=== PATIENT | female | born 1990 | race African-American/Black ===

== ENCOUNTER 2021-07-25 11:22 | Emergency (ER) | payer MEDICAID, OTHER ==
[~2021-07-25] VITALS: Ht 170.2 cm; Wt 133.0 kg
[~2021-07-25 11:22] MED LIST: CARB200T; PHEN100C4
[2021-07-25] MEDS ORDERED: LEVETIRACETAM 1000MG PREMIX 100 ML IV ONE (11:45)
[2021-07-25 11:56] LABS: BASOPHILS % 0.5 % (0.0-2.0); EOSINOPHILS % 2.2 % (0.0-5.0); HEMATOCRIT. 38.3 % (36.0-48.0); HEMOGLOBIN. 13.3 g/dL (12.0-16.0); LYMPHOCYTES % 20.5 % (20.0-50.0); MEAN CORPUSCULAR VOLUME 89.2 fL (81.0-99.0); MONOCYTES % 8.8 % (2.0-8.0); PLATELET 305 x1000/uL (130-400); RED BLOOD CELL COUNT 4.29 mill/uL (4.2-5.4); RED CELL DISTRIBUTION WIDTH 12.9 % (11.6-14.6)
[2021-07-25 12:03] LABS: CHLORIDE 109 mEq/L (98-107)
[2021-07-25 12:07] LABS: ETHANOL BLOOD < 10 mg/dL
[2021-07-25] MEDS ORDERED: LEVE1000 MT (14:21)
[2021-07-25 17:10] VITALS: BP 139/62
== END 2021-07-25 17:14 | disposition home or self-care (01) ==
LOC: ER 11:22
DX: R56.9 Unspecified convulsions (principal)
CPT/HCPCS: 36415; 80053; 80320; 85025; 93005; 96365; 96366; 99285; J1953; G0480

== ENCOUNTER 2022-05-29 21:05 | Inpatient (IN) | payer MEDICAID ==
[~2022-05-29] VITALS: Ht 165.1 cm; Wt 131.5 kg
[~2022-05-29 21:05] MED LIST changes: +DIVA250T4 PO; +LEVE1000 MT; +LEVO100T PO; -PHEN100C4
[2022-05-29] MEDS ORDERED: LEVETIRACETAM 1000MG PREMIX 100 ML IV ONE (21:15)
[2022-05-29] MEDS ORDERED: NALOXONE HCL 0.4 MG/ML 1ML VIAL IV ONE (21:15)
[2022-05-29] MEDS ORDERED: ETOMIDATE 2MG/ML 10ML VIAL IV ONE ×2 (22:00→22:09)
[2022-05-29] MEDS ORDERED: SUCCINYLCHOLINE CHLORIDE 200MG/10ML IV ONE ×2 (22:00→22:09)
[2022-05-29] MEDS ORDERED: FENTANYL CITRATE 2,500 MCG in SODIUM CHLORIDE 0.9% 200 ML IV PRN (22:00)
[2022-05-29 22:10] LABS: HEMATOCRIT. 44.4 % (36.0-48.0); MEAN CORPUSCULAR HEMOGLOBIN 32.3 pg (28.0-32.0); MEAN PLATELET VOLUME 9.9 fl (7.4-10.4); PLATELET 368 x1000/uL (130-400); RED BLOOD CELL COUNT 4.35 mill/uL (4.2-5.4)
[2022-05-29] MEDS ORDERED: MIDAZOLAM HCL 100 MG in SODIUM CHLORIDE 0.9% 100 ML IV PRN (22:15)
[2022-05-29 22:20] LABS: CHLORIDE 105 mEq/L (98-107)
[2022-05-29 22:26] LABS: HCG SCREEN NEGATIVE
[2022-05-29 22:35] LABS: ETHANOL BLOOD < 10 mg/dL; T4 FREE 0.48 ng/dL (0.76-1.46)
[2022-05-29 22:40] LABS: PLATELET ESTIMATE NORMAL
[2022-05-29] MEDS ORDERED: CEFEPIME 2,000 MG in DEXT 5% WATER 100 ML IV STA (23:35)
[2022-05-29 23:38] LABS: BG BASE EXCESS -1.3 mmol/L (-2.0-2.0); BG CARBOXYHEMOGLOBIN 2.2 % (0.5-1.5); BG DEOXYHEMOGLOBIN 12.5 % (0.0-5.0); BG FRACTION INSPIRED OXYGEN 100; BG HCO3 ACT 27.6 mmol/L (22.0-26.0); BG METHEMOGLOBIN 0.3 % (0.0-1.5); BG OXYGEN SATURATION 87.2 % (92.0-98.5); BG PCO2 64.2 mmHg (35.0-45.0); BG PH 7.251 (7.350-7.450); BG SAMPLE SITE RIGHT RADIAL; BG TOTAL HEMOGLOBIN 15.4 g/dL (12.0-18.0); BG TOTAL RESPIRATORY RATE 23 b/min; BG VENT MODE VENT - AC
[2022-05-29] MEDS ORDERED: LEVOTHYROXINE SODIUM 100 MCG/ VIAL IV NR (23:45)
[2022-05-29] MEDS ORDERED: SODIUM CHLORIDE 0.9% 1,000 ML IV ONE (23:45)
[2022-05-29] MEDS ORDERED: VANCOMYCIN 1G PREMIX 200 ML IV SCH (23:45)
[2022-05-30] VITALS (34 sets, daily range): BP systolic 87–119; BP diastolic 46–91
[2022-05-30] MEDS ORDERED: LACTULOSE 20G/30ML UDC NG ONE
[2022-05-30] MEDS ORDERED: METHYLPREDNISOLONE SOD SUCC 125 MG/2 ML VIAL IV ONE
[2022-05-30] MEDS ORDERED: IPRATROPIUM/ALBUTEROL 0.5-3(2.5)MG/3ML NEB HHN ONE
[2022-05-30 01:19] LABS: CLARITY URINE CLOUDY (CLEAR); COLOR URINE DARK YELLOW (YELLOW); KETONES URINE NEGATIVE (NEGATIVE); LEUKOCYTE ESTERASE URINE NEGATIVE (NEGATIVE); NITRITE URINE NEGATIVE (NEGATIVE); OCCULT BLOOD URINE NEGATIVE (NEGATIVE); PROTEIN URINE 2+ (NEGATIVE); SPECIFIC GRAVITY URINE 1.027 (1.005-1.030); UROBILINOGEN URINE 0.2 E.U./dL (0.2-1.0)
[2022-05-30 01:50] LABS: *AMPHETAMINES SCREEN URINE NEGATIVE (NEGATIVE); *BARBITURATES SCREEN URINE NEGATIVE (NEGATIVE); *COCAINE SCREEN URINE NEGATIVE (NEGATIVE); METHADONE URINE SCREEN NEGATIVE (NEGATIVE); OPIATES URINE SCREEN NEGATIVE (NEGATIVE); PHENCYCLIDINE URINE SCREEN NEGATIVE (NEGATIVE)
[2022-05-30 02:22] LABS: *BENZODIAZEPINES SCREEN URINE PRESUMTIVE POSITIVE (NEGATIVE); CANNABINOID URINE SCREEN PRESUMTIVE POSITIVE (NEGATIVE)
[2022-05-30] MEDS ORDERED: NON FORMULARY PATIENT HOME MED XX SCH (09:30)
[2022-05-30] MEDS ORDERED: LEVOTHYROXINE SODIUM 100 MCG/ VIAL IV ONE (09:30)
[2022-05-30] MEDS ORDERED: DIVALPROEX SODIUM 250MG DR TABLET PO SCH (09:30)
[2022-05-30] MEDS ORDERED: ONDANSETRON HCL 4MG/2ML INJ IV PRN (09:30)
[2022-05-30] MEDS ORDERED: HYDROCODONE/ACETAMINOPHEN 5/325MG TABLET PO PRN (09:30)
[2022-05-30] MEDS ORDERED: IPRATROPIUM/ALBUTEROL 0.5-3(2.5)MG/3ML NEB HHN PRN (09:30)
[2022-05-30] MEDS ORDERED: ACETAMINOPHEN 325MG TABLET PO PRN (09:30)
[2022-05-30] MEDS: SODIUM CHLORIDE 0.45% 1,000 ML IV SCH ×2 (09:30→21:32)
[2022-05-30] MEDS ORDERED: CLONIDINE 0.1MG TABLET PO PRN (09:30)
[2022-05-30] MEDS ORDERED: LEVETIRACETAM 1,000 MG in SODIUM CHLORIDE 0.9% 100 ML IV SCH (09:30)
[2022-05-30] MEDS ORDERED: NALOXONE HCL 0.4MG/ML VIAL IV PRN (09:45)
[2022-05-30] MEDS ORDERED: LEVETIRACETAM 1000MG PREMIX 100 ML IV SCH (10:00)
[2022-05-30 10:16] LABS: HEMOGLOBIN. 12.6 g/dL (12.0-16.0); MEAN CORPUSCULAR HEMOGLOBIN 32.9 pg (28.0-32.0); MEAN CORPUSCULAR VOLUME 99.3 fL (81.0-99.0); MEAN PLATELET VOLUME 9.7 fl (7.4-10.4); PLATELET 241 x1000/uL (130-400); RED BLOOD CELL COUNT 3.82 mill/uL (4.2-5.4); RED CELL DISTRIBUTION WIDTH 14.3 % (11.6-14.6)
[2022-05-30 10:23] LABS: CREATINE KINASE 410 IU/L (26-192)
[2022-05-30] MEDS: PANTOPRAZOLE SODIUM 40 MG/VIAL IV SCH ×2 (10:35→21:31)
[2022-05-30] MEDS ORDERED: CEFEPIME 2,000 MG in DEXT 5% WATER 100 ML IV SCH (11:00)
[2022-05-30] MEDS ORDERED: MIDAZOLAM 100MG/100ML PMX 100 ML IV PRN (11:15)
[2022-05-30] MEDS: CEFEPIME 2,000 MG in DEXT 5% WATER 100 ML IV SCH (12:38)
[2022-05-30] MEDS: LEVETIRACETAM 1000MG PREMIX 100 ML IV SCH ×2 (12:38→21:32)
[2022-05-30] MEDS: MIDAZOLAM HCL 100 MG in SODIUM CHLORIDE 0.9% 100 ML IV PRN (12:39)
[2022-05-30 13:15] LABS: PLATELET ESTIMATE NORMAL
[2022-05-30] MEDS ORDERED: CARB200T6 PO (14:35)
[2022-05-30] MEDS ORDERED: KEPP500 PO (14:35)
[2022-05-30] MEDS ORDERED: PHEN100C4 MT ×2 (14:38)
[2022-05-30] MEDS ORDERED: LEVO50TA8 MT (14:38)
[2022-05-30] MEDS ORDERED: PHEN100C4 PO (14:38)
[2022-05-30] MEDS: FENTANYL CITRATE 2,500 MCG in SODIUM CHLORIDE 0.9% 200 ML IV PRN (14:40)
[2022-05-30] MEDS ORDERED: PHENYTOIN 100 MG/4 ML UDC GT SCH (17:00)
[2022-05-30 17:48] LABS: BG CARBOXYHEMOGLOBIN 0.3 % (0.5-1.5); BG DEOXYHEMOGLOBIN 3.1 % (0.0-5.0); BG FRACTION INSPIRED OXYGEN 100; BG HCO3 ACT 26.2 mmol/L (22.0-26.0); BG METHEMOGLOBIN 0.3 % (0.0-1.5); BG OXYGEN SATURATION 96.9 % (92.0-98.5); BG OXYHEMOGLOBIN 96.3 % (94.0-97.0); BG PCO2 39.4 mmHg (35.0-45.0); BG PO2 88.7 mmHg (75.0-100.0); BG SAMPLE SITE RIGHT RADIAL; BG TOTAL HEMOGLOBIN 12.1 g/dL (12.0-18.0); BG VENT MODE VENT - AC
[2022-05-30] MEDS: PHENYTOIN SODIUM 100MG/2ML VIAL IV SCH (18:02)
[2022-05-30 18:51] LABS: HEMATOCRIT 35.5 % (36.0-48.0); HEMOGLOBIN 11.7 g/dL (12.0-16.0)
[2022-05-30 21:18] LABS: TOTAL IRON BINDING CAPACITY 283 ug/dL (250-450)
[2022-05-30] MEDS: CARBAMAZEPINE 200MG TABLET PO SCH (21:31)
[2022-05-30 21:43] LABS: FOLIC ACID (FOLATE) SERUM 5.1 ng/mL (>5.38)
[2022-05-31] VITALS (96 sets, daily range): BP systolic 34–137; BP diastolic 18–106
[2022-05-31] MEDS: MIDAZOLAM HCL 100 MG in SODIUM CHLORIDE 0.9% 100 ML IV PRN ×3 (00:02→21:40)
[2022-05-31] MEDS: FENTANYL CITRATE 2,500 MCG in SODIUM CHLORIDE 0.9% 200 ML IV PRN ×2 (00:04→09:26)
[2022-05-31] MEDS: CEFEPIME 2,000 MG in DEXT 5% WATER 100 ML IV SCH ×2 (00:05→12:17)
[2022-05-31 00:46] LABS: HEMATOCRIT 33.9 % (36.0-48.0); HEMOGLOBIN 11.2 g/dL (12.0-16.0)
[2022-05-31 05:25] LABS: BASOPHILS % 0.4 % (0.0-2.0); EOSINOPHILS % 0.7 % (0.0-5.0); HEMATOCRIT. 33.6 % (36.0-48.0); HEMOGLOBIN. 11.1 g/dL (12.0-16.0); LYMPHOCYTES % 11.1 % (20.0-50.0); MEAN CORPUSCULAR HEMOGLOBIN 32.9 pg (28.0-32.0); MEAN CORPUSCULAR VOLUME 99.7 fL (81.0-99.0); MEAN PLATELET VOLUME 9.9 fl (7.4-10.4); MONOCYTES % 6.2 % (2.0-8.0); NEUTROPHILS % 81.6 % (40.0-76.0); PLATELET 166 x1000/uL (130-400); RED BLOOD CELL COUNT 3.37 mill/uL (4.2-5.4); RED CELL DISTRIBUTION WIDTH 14.1 % (11.6-14.6)
[2022-05-31] MEDS: SODIUM CHLORIDE 0.45% 1,000 ML IV SCH ×2 (05:51→16:19)
[2022-05-31 06:04] LABS: CHLORIDE 108 mEq/L (98-107)
[2022-05-31 06:12] LABS: CREATINE KINASE 712 IU/L (26-192); HDL CHOLESTEROL 30 mg/dL (40-59); LDL CHOLESTEROL 99 mg/dL (5-100)
[2022-05-31] MEDS ORDERED: LEVOTHYROXINE SODIUM 100MCG TABLET GT SCH (07:50)
[2022-05-31] MEDS: IPRATROPIUM BROMIDE (0.02%) 0.5MG/2.5ML NEB HHN PRN (08:20)
[2022-05-31] MEDS: ALBUTEROL (0.083%) 2.5MG/3ML NEB HHN PRN (08:21)
[2022-05-31 09:07] LABS: BG BASE EXCESS 0.8 mmol/L (-2.0-2.0); BG CARBOXYHEMOGLOBIN 0.5 % (0.5-1.5); BG DEOXYHEMOGLOBIN 8.4 % (0.0-5.0); BG FRACTION INSPIRED OXYGEN 100; BG HCO3 ACT 27.9 mmol/L (22.0-26.0); BG METHEMOGLOBIN 0.2 % (0.0-1.5); BG OXYGEN SATURATION 91.5 % (92.0-98.5); BG OXYHEMOGLOBIN 90.9 % (94.0-97.0); BG PCO2 56.5 mmHg (35.0-45.0); BG PH 7.312 (7.350-7.450); BG PO2 67.8 mmHg (75.0-100.0); BG SAMPLE SITE RIGHT RADIAL; BG TOTAL HEMOGLOBIN 12.1 g/dL (12.0-18.0); BG VENT MODE VENT - AC
[2022-05-31] MEDS: PHENYTOIN 100 MG/4 ML UDC GT SCH (09:48)
[2022-05-31] MEDS: CARBAMAZEPINE 200MG TABLET PO SCH ×2 (09:48→21:39)
[2022-05-31] MEDS: PANTOPRAZOLE SODIUM 40 MG/VIAL IV SCH ×2 (09:48→21:39)
[2022-05-31] MEDS: LEVOTHYROXINE SODIUM 100 MCG/ VIAL IV SCH (09:48)
[2022-05-31] MEDS: LEVETIRACETAM 1000MG PREMIX 100 ML IV SCH ×2 (09:51→21:39)
[2022-05-31] MEDS: VANCOMYCIN 1G PREMIX 200 ML IV SCH ×2 (09:51→21:39)
[2022-05-31] MEDS ORDERED: PROPOFOL 10MG/ML 100ML 100 ML IV PRN (10:15)
[2022-05-31 12:13] LABS: HEMATOCRIT 33.3 % (36.0-48.0); HEMOGLOBIN 10.7 g/dL (12.0-16.0)
[2022-05-31] MEDS: PHENYLEPHRINE 100 MG in DEXT 5% WATER 240 ML IV PRN (13:28)
[2022-05-31] MEDS: LACTULOSE 20G/30ML UDC NG SCH (16:17)
[2022-05-31] MEDS: ASCORBIC ACID 500 MG TABLET NG SCH ×2 (16:17→17:38)
[2022-05-31] MEDS: FERROUS SULFATE 300MG/5ML UDC PO SCH ×2 (16:18→17:39)
[2022-05-31] MEDS: PHENYTOIN SODIUM 100MG/2ML VIAL IV SCH (17:39)
[2022-05-31] MEDS: PROPOFOL 10MG/ML 100ML 100 ML IV PRN (22:14)
[2022-06-01] VITALS (61 sets, daily range): BP systolic 90–114; BP diastolic 39–65
[2022-06-01] MEDS: DOXYCYCLINE 100 MG in DEXT 5% WATER 100 ML IV SCH ×3 (00:34→23:49)
[2022-06-01] MEDS: CEFEPIME 2,000 MG in DEXT 5% WATER 100 ML IV SCH ×3 (00:34→23:49)
[2022-06-01 05:43] LABS: BASOPHILS % 0.5 % (0.0-2.0); EOSINOPHILS % 1.1 % (0.0-5.0); HEMOGLOBIN. 9.9 g/dL (12.0-16.0); LYMPHOCYTES % 14.3 % (20.0-50.0); MEAN CORPUSCULAR HEMOGLOBIN 32.8 pg (28.0-32.0); MEAN CORPUSCULAR VOLUME 99.4 fL (81.0-99.0); MEAN PLATELET VOLUME 10.1 fl (7.4-10.4); MONOCYTES % 7.8 % (2.0-8.0); NEUTROPHILS % 76.3 % (40.0-76.0); PLATELET 165 x1000/uL (130-400); RED BLOOD CELL COUNT 3.02 mill/uL (4.2-5.4); RED CELL DISTRIBUTION WIDTH 14.2 % (11.6-14.6)
[2022-06-01 05:57] LABS: CHLORIDE 107 mEq/L (98-107); PHOSPHORUS 1.4 mg/dL (2.5-4.9)
[2022-06-01] MEDS: MIDAZOLAM HCL 100 MG in SODIUM CHLORIDE 0.9% 100 ML IV PRN ×2 (07:03→20:05)
[2022-06-01] MEDS: SODIUM CHLORIDE 0.45% 1,000 ML IV SCH ×2 (07:05→11:32)
[2022-06-01] MEDS: IPRATROPIUM BROMIDE (0.02%) 0.5MG/2.5ML NEB HHN PRN (08:25)
[2022-06-01] MEDS: ALBUTEROL (0.083%) 2.5MG/3ML NEB HHN PRN (08:25)
[2022-06-01] MEDS: FENTANYL CITRATE 2,500 MCG in SODIUM CHLORIDE 0.9% 200 ML IV PRN ×2 (08:30→17:43)
[2022-06-01] MEDS: VANCOMYCIN 1G PREMIX 200 ML IV SCH (09:00)
[2022-06-01] MEDS: LACTULOSE 20G/30ML UDC NG SCH (09:00)
[2022-06-01] MEDS: LEVOTHYROXINE SODIUM 100 MCG/ VIAL IV SCH (09:00)
[2022-06-01] MEDS: CARBAMAZEPINE 200MG TABLET PO SCH ×2 (09:00→20:20)
[2022-06-01] MEDS: PANTOPRAZOLE SODIUM 40 MG/VIAL IV SCH ×2 (09:00→20:19)
[2022-06-01] MEDS: FERROUS SULFATE 300MG/5ML UDC PO SCH ×2 (09:00→17:42)
[2022-06-01] MEDS: ASCORBIC ACID 500 MG TABLET NG SCH ×2 (09:00→17:42)
[2022-06-01] MEDS: PHENYTOIN 100 MG/4 ML UDC GT SCH (09:00)
[2022-06-01 09:03] LABS: BG CARBOXYHEMOGLOBIN 0.3 % (0.5-1.5); BG DEOXYHEMOGLOBIN 6.8 % (0.0-5.0); BG FRACTION INSPIRED OXYGEN 100; BG HCO3 ACT 24.6 mmol/L (22.0-26.0); BG METHEMOGLOBIN 0.3 % (0.0-1.5); BG OXYGEN SATURATION 93.2 % (92.0-98.5); BG OXYHEMOGLOBIN 92.6 % (94.0-97.0); BG PCO2 50.2 mmHg (35.0-45.0); BG PH 7.308 (7.350-7.450); BG PO2 73.2 mmHg (75.0-100.0); BG SAMPLE SITE RIGHT RADIAL; BG TOTAL HEMOGLOBIN 11.6 g/dL (12.0-18.0); BG VENT MODE VENT - APRV
[2022-06-01] MEDS ORDERED: POTASSIUM PHOS,M-BASIC-D-BASIC 15 MMOL in DEXT 5% WATER 245 ML IV NR (10:00)
[2022-06-01] MEDS: PHENYLEPHRINE 100 MG in DEXT 5% WATER 240 ML IV PRN (10:21)
[2022-06-01] MEDS: LEVETIRACETAM 1000MG PREMIX 100 ML IV SCH ×2 (11:17→20:20)
[2022-06-01] MEDS: DOCUSATE SODIUM SUGAR FREE 100MG/10ML UDC NG SCH ×2 (14:02→17:42)
[2022-06-01] MEDS: PROPOFOL 10MG/ML 100ML 100 ML IV PRN ×2 (15:34→22:04)
[2022-06-01] MEDS: PHENYTOIN SODIUM 100MG/2ML VIAL IV SCH (18:20)
[2022-06-01] MEDS ORDERED: IPRATROPIUM/ALBUTEROL 0.5-3(2.5)MG/3ML NEB HHN SCH (20:00)
[2022-06-01] MEDS ORDERED: FUROSEMIDE 40MG/4ML VIAL IVP NR (20:00)
[2022-06-02] VITALS (59 sets, daily range): BP systolic 90–127; BP diastolic 42–68
[2022-06-02] MEDS: ALBUTEROL (0.083%) 2.5MG/3ML NEB HHN SCH ×5 (00:54→20:25)
[2022-06-02] MEDS: IPRATROPIUM BROMIDE (0.02%) 0.5MG/2.5ML NEB HHN SCH ×5 (00:54→20:25)
[2022-06-02] MEDS: PHENYLEPHRINE 100 MG in DEXT 5% WATER 240 ML IV PRN (03:58)
[2022-06-02] MEDS: PROPOFOL 10MG/ML 100ML 100 ML IV PRN ×2 (04:59→11:44)
[2022-06-02] MEDS: MIDAZOLAM HCL 100 MG in SODIUM CHLORIDE 0.9% 100 ML IV PRN ×2 (05:00→14:54)
[2022-06-02] MEDS: FENTANYL CITRATE 2,500 MCG in SODIUM CHLORIDE 0.9% 200 ML IV PRN ×2 (05:00→14:50)
[2022-06-02 05:54] LABS: BASOPHILS % 0.4 % (0.0-2.0); EOSINOPHILS % 1.1 % (0.0-5.0); HEMATOCRIT. 32.7 % (36.0-48.0); HEMOGLOBIN. 10.8 g/dL (12.0-16.0); LYMPHOCYTES % 11.2 % (20.0-50.0); MEAN CORPUSCULAR VOLUME 100.4 fL (81.0-99.0); MEAN PLATELET VOLUME 10.8 fl (7.4-10.4); MONOCYTES % 11.4 % (2.0-8.0); NEUTROPHILS % 75.9 % (40.0-76.0); PLATELET 174 x1000/uL (130-400); RED BLOOD CELL COUNT 3.26 mill/uL (4.2-5.4); RED CELL DISTRIBUTION WIDTH 13.7 % (11.6-14.6)
[2022-06-02 05:58] LABS: CHLORIDE 102 mEq/L (98-107)
[2022-06-02 06:24] LABS: CREATINE KINASE 178 IU/L (26-192); PHOSPHORUS 2.2 mg/dL (2.5-4.9)
[2022-06-02] MEDS: LEVOTHYROXINE SODIUM 100 MCG/ VIAL IV SCH ×2 (07:50→09:46)
[2022-06-02 08:16] LABS: BG BASE EXCESS 0.9 mmol/L (-2.0-2.0); BG DEOXYHEMOGLOBIN 11.8 % (0.0-5.0); BG FRACTION INSPIRED OXYGEN 100; BG HCO3 ACT 26.7 mmol/L (22.0-26.0); BG METHEMOGLOBIN 0.1 % (0.0-1.5); BG OXYGEN SATURATION 88.2 % (92.0-98.5); BG OXYHEMOGLOBIN 88.1 % (94.0-97.0); BG PCO2 48.3 mmHg (35.0-45.0); BG PH 7.361 (7.350-7.450); BG PO2 55.9 mmHg (75.0-100.0); BG SAMPLE SITE LEFT BRACHIAL; BG TOTAL HEMOGLOBIN 11.2 g/dL (12.0-18.0); BG VENT MODE VENT - AC
[2022-06-02] MEDS ORDERED: MAGNESIUM 2 G PREMIX 50 ML IV NR (09:00)
[2022-06-02] MEDS: LEVETIRACETAM 1000MG PREMIX 100 ML IV SCH ×2 (09:20→21:43)
[2022-06-02] MEDS: SODIUM CHLORIDE 0.45% 1,000 ML IV SCH (09:24)
[2022-06-02] MEDS: PHENYTOIN 100 MG/4 ML UDC GT SCH (09:36)
[2022-06-02] MEDS: LACTULOSE 20G/30ML UDC NG SCH (09:45)
[2022-06-02] MEDS: ASCORBIC ACID 500 MG TABLET NG SCH ×2 (09:45→17:00)
[2022-06-02] MEDS: CARBAMAZEPINE 200MG TABLET PO SCH ×2 (09:45→21:43)
[2022-06-02] MEDS: FERROUS SULFATE 300MG/5ML UDC PO SCH ×2 (09:45→17:00)
[2022-06-02] MEDS: PANTOPRAZOLE SODIUM 40 MG/VIAL IV SCH ×2 (09:46→21:43)
[2022-06-02] MEDS: DOCUSATE SODIUM SUGAR FREE 100MG/10ML UDC NG SCH ×2 (09:46→17:00)
[2022-06-02] MEDS ORDERED: POTASSIUM CHLORIDE INJ 40 MEQ in DEXT 5% WATER 250 ML IV NR (10:00)
[2022-06-02] MEDS ORDERED: POTASSIUM PHOS,M-BASIC-D-BASIC 10 MMOL in DEXT 5% WATER 246.6667 ML IV NR (10:00)
[2022-06-02] MEDS: DOXYCYCLINE 100 MG in DEXT 5% WATER 100 ML IV SCH ×2 (11:43→23:39)
[2022-06-02] MEDS: CEFEPIME 2,000 MG in DEXT 5% WATER 100 ML IV SCH ×2 (12:00→23:39)
[2022-06-02] MEDS: METHYLPREDNISOLONE SOD SUCC 125 MG/2 ML VIAL IV SCH ×2 (14:49→21:43)
[2022-06-02] MEDS: PHENYTOIN SODIUM 100MG/2ML VIAL IV SCH (18:34)
[2022-06-02] MEDS: ACETAMINOPHEN 325MG TABLET PO PRN (20:01)
[2022-06-03] VITALS (77 sets, daily range): BP systolic 99–177; BP diastolic 45–125
[2022-06-03] MEDS: PROPOFOL 10MG/ML 100ML 100 ML IV PRN ×2 (00:14→10:48)
[2022-06-03] MEDS: IPRATROPIUM BROMIDE (0.02%) 0.5MG/2.5ML NEB HHN SCH ×5 (00:31→16:39)
[2022-06-03] MEDS: ALBUTEROL (0.083%) 2.5MG/3ML NEB HHN SCH ×6 (00:31→20:57)
[2022-06-03] MEDS: SODIUM CHLORIDE 0.45% 1,000 ML IV SCH (04:35)
[2022-06-03 05:22] LABS: CHLORIDE 102 mEq/L (98-107)
[2022-06-03 05:28] LABS: HEMATOCRIT. 32.5 % (36.0-48.0); HEMOGLOBIN. 10.6 g/dL (12.0-16.0); MEAN CORPUSCULAR HEMOGLOBIN 32.7 pg (28.0-32.0); MEAN CORPUSCULAR VOLUME 100.4 fL (81.0-99.0); MEAN PLATELET VOLUME 10.5 fl (7.4-10.4); PLATELET 181 x1000/uL (130-400); RED BLOOD CELL COUNT 3.24 mill/uL (4.2-5.4)
[2022-06-03 05:32] LABS: PHOSPHORUS 3.9 mg/dL (2.5-4.9)
[2022-06-03] MEDS: METHYLPREDNISOLONE SOD SUCC 125 MG/2 ML VIAL IV SCH ×3 (06:08→21:09)
[2022-06-03] MEDS: FERROUS SULFATE 300MG/5ML UDC PO SCH ×2 (08:22→17:37)
[2022-06-03] MEDS: LACTULOSE 20G/30ML UDC NG SCH (08:22)
[2022-06-03] MEDS: PANTOPRAZOLE SODIUM 40 MG/VIAL IV SCH ×2 (08:23→21:09)
[2022-06-03] MEDS: LEVETIRACETAM 1000MG PREMIX 100 ML IV SCH ×2 (08:23→21:10)
[2022-06-03] MEDS: ASCORBIC ACID 500 MG TABLET NG SCH ×2 (08:23→17:39)
[2022-06-03] MEDS: LEVOTHYROXINE SODIUM 100 MCG/ VIAL IV SCH (08:23)
[2022-06-03] MEDS: DOCUSATE SODIUM SUGAR FREE 100MG/10ML UDC NG SCH ×2 (08:25→17:36)
[2022-06-03] MEDS: CARBAMAZEPINE 200MG TABLET PO SCH ×2 (08:31→21:09)
[2022-06-03] MEDS: PHENYTOIN 100 MG/4 ML UDC GT SCH (08:31)
[2022-06-03 09:02] LABS: PLATELET ESTIMATE NORMAL
[2022-06-03] MEDS: PHENYLEPHRINE 100 MG in DEXT 5% WATER 240 ML IV PRN (09:12)
[2022-06-03] MEDS: MIDAZOLAM HCL 100 MG in SODIUM CHLORIDE 0.9% 100 ML IV PRN ×2 (09:14→23:44)
[2022-06-03 09:24] LABS: BG BASE EXCESS -5.1 mmol/L (-2.0-2.0); BG CARBOXYHEMOGLOBIN 0.7 % (0.5-1.5); BG DEOXYHEMOGLOBIN 6.5 % (0.0-5.0); BG HCO3 ACT 22.6 mmol/L (22.0-26.0); BG METHEMOGLOBIN 0.2 % (0.0-1.5); BG OXYGEN SATURATION 93.4 % (92.0-98.5); BG OXYHEMOGLOBIN 92.6 % (94.0-97.0); BG PCO2 53.9 mmHg (35.0-45.0); BG PO2 74.2 mmHg (75.0-100.0); BG SAMPLE SITE RIGHT RADIAL; BG TOTAL HEMOGLOBIN 11.8 g/dL (12.0-18.0); BG VENT MODE VENT - P/C
[2022-06-03] MEDS: DOXYCYCLINE 100 MG in DEXT 5% WATER 100 ML IV SCH ×2 (10:49→23:45)
[2022-06-03] MEDS: FENTANYL CITRATE 2,500 MCG in SODIUM CHLORIDE 0.9% 200 ML IV PRN ×2 (12:13→23:45)
[2022-06-03] MEDS: CEFEPIME 2,000 MG in DEXT 5% WATER 100 ML IV SCH (12:14)
[2022-06-03] MEDS: PHENYTOIN SODIUM 100MG/2ML VIAL IV SCH (17:38)
[2022-06-03] MEDS ORDERED: VANCOMYCIN 1G PREMIX 200 ML IV SCH (18:00)
[2022-06-03] MEDS ORDERED: PROPOFOL 10MG/ML 100ML 100 ML IV PRN (20:01)
[2022-06-04] VITALS (92 sets, daily range): BP systolic 54–155; BP diastolic 40–97
[2022-06-04] MEDS: ACETYLCYSTEINE 200MG/ML 20% VIAL 4ML INH SCH ×2 (00:31→08:27)
[2022-06-04] MEDS: ALBUTEROL (0.083%) 2.5MG/3ML NEB HHN SCH ×5 (00:32→20:14)
[2022-06-04] MEDS: SODIUM CHLORIDE 0.45% 1,000 ML IV SCH (01:16)
[2022-06-04] MEDS: CEFEPIME 2,000 MG in DEXT 5% WATER 100 ML IV SCH ×2 (01:16→13:21)
[2022-06-04] MEDS: PHENYLEPHRINE 100 MG in DEXT 5% WATER 240 ML IV PRN (03:37)
[2022-06-04] MEDS: IPRATROPIUM BROMIDE (0.02%) 0.5MG/2.5ML NEB HHN SCH (03:59)
[2022-06-04] MEDS: METHYLPREDNISOLONE SOD SUCC 125 MG/2 ML VIAL IV SCH ×3 (05:33→22:40)
[2022-06-04 07:13] LABS: CHLORIDE 106 mEq/L (98-107)
[2022-06-04 07:15] LABS: HEMATOCRIT. 28.7 % (36.0-48.0); HEMOGLOBIN. 9.4 g/dL (12.0-16.0); MEAN CORPUSCULAR HEMOGLOBIN 32.3 pg (28.0-32.0); MEAN CORPUSCULAR VOLUME 98.4 fL (81.0-99.0); MEAN PLATELET VOLUME 10.4 fl (7.4-10.4); PLATELET 211 x1000/uL (130-400); RED BLOOD CELL COUNT 2.92 mill/uL (4.2-5.4); RED CELL DISTRIBUTION WIDTH 13.7 % (11.6-14.6)
[2022-06-04] MEDS ORDERED: ATROPINE SULFATE 1MG/ML VIAL IV SCH (07:45)
[2022-06-04] MEDS: NOREPINEPHRINE 32 MG in DEXT 5% WATER 218 ML IV PRN (07:55)
[2022-06-04] MEDS ORDERED: ATROPINE SULFATE 1MG/10ML SYR IV SCH (08:00)
[2022-06-04] MEDS: PANTOPRAZOLE SODIUM 40 MG/VIAL IV SCH ×2 (09:39→22:40)
[2022-06-04] MEDS: LEVETIRACETAM 1000MG PREMIX 100 ML IV SCH ×2 (09:39→22:41)
[2022-06-04] MEDS: LEVOTHYROXINE SODIUM 100 MCG/ VIAL IV SCH (09:39)
[2022-06-04] MEDS: LACTULOSE 20G/30ML UDC NG SCH (09:40)
[2022-06-04] MEDS: CARBAMAZEPINE 200MG TABLET PO SCH ×2 (09:40→22:41)
[2022-06-04] MEDS: PHENYTOIN 100 MG/4 ML UDC GT SCH (09:40)
[2022-06-04] MEDS: ASCORBIC ACID 500 MG TABLET NG SCH ×2 (09:40→17:45)
[2022-06-04] MEDS: FERROUS SULFATE 300MG/5ML UDC PO SCH ×2 (09:42→17:45)
[2022-06-04] MEDS: MIDAZOLAM HCL 100 MG in SODIUM CHLORIDE 0.9% 100 ML IV PRN (09:48)
[2022-06-04 10:16] LABS: BG BASE EXCESS -2.9 mmol/L (-2.0-2.0); BG CARBOXYHEMOGLOBIN 0.3 % (0.5-1.5); BG DEOXYHEMOGLOBIN 15.7 % (0.0-5.0); BG FRACTION INSPIRED OXYGEN 100; BG HCO3 ACT 23.6 mmol/L (22.0-26.0); BG METHEMOGLOBIN 0.1 % (0.0-1.5); BG OXYGEN SATURATION 84.2 % (92.0-98.5); BG OXYHEMOGLOBIN 83.9 % (94.0-97.0); BG PH 7.301 (7.350-7.450); BG PO2 50.1 mmHg (75.0-100.0); BG SAMPLE SITE RIGHT RADIAL; BG TOTAL HEMOGLOBIN 10.7 g/dL (12.0-18.0); BG VENT MODE VENT - P/C
[2022-06-04] MEDS: DOCUSATE SODIUM SUGAR FREE 100MG/10ML UDC NG SCH ×2 (10:17→17:45)
[2022-06-04] MEDS: FENTANYL CITRATE/PF 2,500 MCG in SODIUM CHLORIDE 0.9% 200 ML IV PRN ×2 (10:48→19:03)
[2022-06-04] MEDS: VANCOMYCIN 1250MG in DEXTROSE 5% WATER 250ML IV SCH ×2 (10:50→22:41)
[2022-06-04 13:19] LABS: PLATELET ESTIMATE NORMAL
[2022-06-04] MEDS: METOCLOPRAMIDE HCL 10MG/2ML VIAL IV SCH ×2 (13:20→17:43)
[2022-06-04] MEDS: DOXYCYCLINE 100 MG in DEXT 5% WATER 100 ML IV SCH (13:23)
[2022-06-04] MEDS ORDERED: DOPAMINE 400MG/250ML PREMIX 250 ML IV PRN (14:15)
[2022-06-04] MEDS: PHENYTOIN SODIUM 100MG/2ML VIAL IV SCH (17:45)
[2022-06-04] MEDS: MIDAZOLAM HCL 100 MG in SODIUM CHLORIDE 0.9% 80 ML IV PRN (19:02)
[2022-06-05] VITALS (86 sets, daily range): BP systolic 96–152; BP diastolic 42–90
[2022-06-05] MEDS: ALBUTEROL (0.083%) 2.5MG/3ML NEB HHN SCH ×6 (00:24→20:19)
[2022-06-05] MEDS: ACETYLCYSTEINE 200MG/ML 20% VIAL 4ML INH SCH ×3 (00:25→15:38)
[2022-06-05] MEDS: METOCLOPRAMIDE HCL 10MG/2ML VIAL IV SCH ×4 (00:51→18:02)
[2022-06-05] MEDS: DOXYCYCLINE 100 MG in DEXT 5% WATER 100 ML IV SCH ×2 (00:51→12:00)
[2022-06-05] MEDS: CEFEPIME 2,000 MG in DEXT 5% WATER 100 ML IV SCH ×2 (00:51→12:04)
[2022-06-05] MEDS: SODIUM CHLORIDE 0.45% 1,000 ML IV SCH ×2 (00:52→18:03)
[2022-06-05] MEDS: FENTANYL CITRATE/PF 2,500 MCG in SODIUM CHLORIDE 0.9% 200 ML IV PRN ×2 (03:02→13:49)
[2022-06-05] MEDS: MIDAZOLAM HCL 100 MG in SODIUM CHLORIDE 0.9% 80 ML IV PRN ×4 (03:04→19:47)
[2022-06-05 05:38] LABS: HEMOGLOBIN. 10.2 g/dL (12.0-16.0); MEAN CORPUSCULAR HEMOGLOBIN 32.5 pg (28.0-32.0); MEAN CORPUSCULAR VOLUME 99.1 fL (81.0-99.0); MEAN PLATELET VOLUME 9.9 fl (7.4-10.4); PLATELET 234 x1000/uL (130-400); RED BLOOD CELL COUNT 3.13 mill/uL (4.2-5.4); RED CELL DISTRIBUTION WIDTH 13.9 % (11.6-14.6)
[2022-06-05 05:53] LABS: CHLORIDE 109 mEq/L (98-107)
[2022-06-05 06:01] LABS: PHOSPHORUS 2.1 mg/dL (2.5-4.9)
[2022-06-05] MEDS: METHYLPREDNISOLONE SOD SUCC 125 MG/2 ML VIAL IV SCH ×3 (06:05→21:09)
[2022-06-05] MEDS: LEVOTHYROXINE SODIUM 100 MCG/ VIAL IV SCH (09:00)
[2022-06-05] MEDS: FOLIC ACID 1MG TABLET PO SCH (09:00)
[2022-06-05] MEDS: ASCORBIC ACID 500 MG TABLET NG SCH ×2 (09:00→18:03)
[2022-06-05] MEDS: CARBAMAZEPINE 200MG TABLET PO SCH ×2 (09:00→21:09)
[2022-06-05] MEDS: PHENYTOIN 100 MG/4 ML UDC GT SCH (09:01)
[2022-06-05] MEDS: FERROUS SULFATE 300MG/5ML UDC PO SCH ×2 (09:01→18:02)
[2022-06-05] MEDS: LACTULOSE 20G/30ML UDC NG SCH (09:01)
[2022-06-05] MEDS: DOCUSATE SODIUM SUGAR FREE 100MG/10ML UDC NG SCH ×2 (09:01→18:02)
[2022-06-05] MEDS: PANTOPRAZOLE SODIUM 40 MG/VIAL IV SCH ×2 (09:01→21:08)
[2022-06-05] MEDS: LEVETIRACETAM 1,000 MG in SODIUM CHLORIDE 0.9% 100 ML IV SCH ×2 (09:02→21:08)
[2022-06-05] MEDS: VANCOMYCIN 1250MG in DEXTROSE 5% WATER 250ML IV SCH ×2 (09:03→21:08)
[2022-06-05 09:21] LABS: ATYPICAL LYMPHOCYTES 1; PLATELET ESTIMATE NORMAL
[2022-06-05 10:22] LABS: BG CARBOXYHEMOGLOBIN 0.3 % (0.5-1.5); BG FRACTION INSPIRED OXYGEN 100; BG HCO3 ACT 26.2 mmol/L (22.0-26.0); BG METHEMOGLOBIN 0.3 % (0.0-1.5); BG OXYGEN SATURATION 89.9 % (92.0-98.5); BG OXYHEMOGLOBIN 89.4 % (94.0-97.0); BG PCO2 49.8 mmHg (35.0-45.0); BG PH 7.339 (7.350-7.450); BG PO2 59.8 mmHg (75.0-100.0); BG SAMPLE SITE RIGHT RADIAL; BG TOTAL HEMOGLOBIN 11.2 g/dL (12.0-18.0); BG VENT MODE VENT - P/C
[2022-06-05] MEDS ORDERED: HALOPERIDOL LACTATE 5MG/ML VIAL IM PRN (13:30)
[2022-06-05] MEDS: PHENYTOIN 100 MG/4 ML UDC NG SCH (21:09)
[2022-06-05] MEDS: FENTANYL 2500MCG/250ML PMX 250 ML IV PRN (21:10)
[2022-06-06] VITALS (94 sets, daily range): BP systolic 76–152; BP diastolic 31–121
[2022-06-06] MEDS: CEFEPIME 2,000 MG in DEXT 5% WATER 100 ML IV SCH ×3 (00:04→23:54)
[2022-06-06] MEDS: DOXYCYCLINE 100 MG in DEXT 5% WATER 100 ML IV SCH ×3 (00:04→23:53)
[2022-06-06] MEDS: METOCLOPRAMIDE HCL 10MG/2ML VIAL IV SCH ×5 (00:04→23:54)
[2022-06-06] MEDS: ACETYLCYSTEINE 200MG/ML 20% VIAL 4ML INH SCH ×3 (00:19→15:28)
[2022-06-06] MEDS: ALBUTEROL (0.083%) 2.5MG/3ML NEB HHN SCH ×6 (00:19→20:36)
[2022-06-06] MEDS: MIDAZOLAM HCL 100 MG in SODIUM CHLORIDE 0.9% 80 ML IV PRN ×4 (01:38→19:19)
[2022-06-06] MEDS: FENTANYL 2500MCG/250ML PMX 250 ML IV PRN ×3 (03:29→17:48)
[2022-06-06 05:41] LABS: CHLORIDE 112 mEq/L (98-107)
[2022-06-06 05:45] LABS: HEMATOCRIT. 26.6 % (36.0-48.0); HEMOGLOBIN. 8.8 g/dL (12.0-16.0); MEAN CORPUSCULAR HEMOGLOBIN 32.9 pg (28.0-32.0); MEAN CORPUSCULAR VOLUME 99.9 fL (81.0-99.0); MEAN PLATELET VOLUME 9.4 fl (7.4-10.4); PLATELET 180 x1000/uL (130-400); RED BLOOD CELL COUNT 2.66 mill/uL (4.2-5.4); RED CELL DISTRIBUTION WIDTH 14.1 % (11.6-14.6)
[2022-06-06] MEDS: METHYLPREDNISOLONE SOD SUCC 125 MG/2 ML VIAL IV SCH ×3 (06:11→21:17)
[2022-06-06] MEDS ORDERED: DIPHENHYDRAMINE 50MG/ML VIAL IV NR (06:45)
[2022-06-06] MEDS: LEVOTHYROXINE SODIUM 100 MCG/ VIAL IV SCH (09:33)
[2022-06-06] MEDS: FOLIC ACID 1MG TABLET PO SCH (09:33)
[2022-06-06] MEDS: ASCORBIC ACID 500 MG TABLET NG SCH ×2 (09:33→17:00)
[2022-06-06] MEDS: CARBAMAZEPINE 200MG TABLET PO SCH ×2 (09:33→21:00)
[2022-06-06] MEDS: PHENYTOIN 100 MG/4 ML UDC GT SCH (09:34)
[2022-06-06] MEDS: DOCUSATE SODIUM SUGAR FREE 100MG/10ML UDC NG SCH ×2 (09:34→17:00)
[2022-06-06] MEDS: FERROUS SULFATE 300MG/5ML UDC PO SCH ×2 (09:34→17:00)
[2022-06-06] MEDS: LACTULOSE 20G/30ML UDC NG SCH (09:34)
[2022-06-06] MEDS: LEVETIRACETAM 1,000 MG in SODIUM CHLORIDE 0.9% 100 ML IV SCH ×2 (09:35→21:16)
[2022-06-06] MEDS: VANCOMYCIN 1250MG in DEXTROSE 5% WATER 250ML IV SCH ×2 (09:35→21:17)
[2022-06-06 10:18] LABS: BG BASE EXCESS 2.6 mmol/L (-2.0-2.0); BG CARBOXYHEMOGLOBIN 0.1 % (0.5-1.5); BG DEOXYHEMOGLOBIN 5.1 % (0.0-5.0); BG FRACTION INSPIRED OXYGEN 100; BG METHEMOGLOBIN 0.2 % (0.0-1.5); BG OXYGEN SATURATION 94.9 % (92.0-98.5); BG OXYHEMOGLOBIN 94.6 % (94.0-97.0); BG PCO2 47.6 mmHg (35.0-45.0); BG PH 7.388 (7.350-7.450); BG PO2 78.2 mmHg (75.0-100.0); BG SAMPLE SITE LEFT RADIAL; BG TOTAL HEMOGLOBIN 9.3 g/dL (12.0-18.0); BG VENT MODE VENT - P/C
[2022-06-06 10:57] LABS: NUCLEATED RED BLOOD CELLS 1 /100 WBC; PLATELET ESTIMATE NORMAL
[2022-06-06] MEDS: PANTOPRAZOLE SODIUM 40 MG/VIAL IV SCH ×2 (11:56→21:17)
[2022-06-06] MEDS: SODIUM CHLORIDE 0.45% 1,000 ML IV SCH (11:59)
[2022-06-06 17:27] LABS: HEMATOCRIT 29.4 % (36.0-48.0); HEMOGLOBIN 9.5 g/dL (12.0-16.0); MEAN CORPUSCULAR HEMOGLOBIN 32.6 pg (28.0-32.0); MEAN CORPUSCULAR VOLUME 100.4 fL (81.0-99.0); PLATELET 209 x1000/uL (130-400); RED BLOOD CELL COUNT 2.93 mill/uL (4.2-5.4); RED CELL DISTRIBUTION WIDTH 13.9 % (11.6-14.6)
[2022-06-06] MEDS: PHENYTOIN 100 MG/4 ML UDC NG SCH (21:00)
[2022-06-07] VITALS (79 sets, daily range): BP systolic 105–161; BP diastolic 45–124
[2022-06-07] MEDS: ALBUTEROL (0.083%) 2.5MG/3ML NEB HHN SCH (00:04)
[2022-06-07] MEDS: ACETYLCYSTEINE 200MG/ML 20% VIAL 4ML INH SCH ×2 (00:04→12:10)
[2022-06-07] MEDS: FENTANYL 2500MCG/250ML PMX 250 ML IV PRN ×4 (00:50→20:29)
[2022-06-07] MEDS: MIDAZOLAM HCL 100 MG in SODIUM CHLORIDE 0.9% 80 ML IV PRN ×5 (00:50→20:54)
[2022-06-07] MEDS: METOCLOPRAMIDE HCL 10MG/2ML VIAL IV SCH ×3 (05:28→18:00)
[2022-06-07] MEDS: METHYLPREDNISOLONE SOD SUCC 125 MG/2 ML VIAL IV SCH ×3 (05:28→21:02)
[2022-06-07 07:24] LABS: BASOPHILS % 1.3 % (0.0-2.0); EOSINOPHILS % 0.7 % (0.0-5.0); HEMATOCRIT. 27.8 % (36.0-48.0); HEMOGLOBIN. 9.1 g/dL (12.0-16.0); LYMPHOCYTES % 15.4 % (20.0-50.0); MEAN CORPUSCULAR HEMOGLOBIN 33.3 pg (28.0-32.0); MEAN CORPUSCULAR VOLUME 101.7 fL (81.0-99.0); MEAN PLATELET VOLUME 9.7 fl (7.4-10.4); MONOCYTES % 7.6 % (2.0-8.0); PLATELET 197 x1000/uL (130-400); RED BLOOD CELL COUNT 2.74 mill/uL (4.2-5.4); RED CELL DISTRIBUTION WIDTH 14.2 % (11.6-14.6)
[2022-06-07] MEDS ORDERED: PROPOFOL 10MG/ML 100ML 100 ML IV PRN (08:00)
[2022-06-07] MEDS ORDERED: HALOPERIDOL LACTATE 5MG/ML VIAL IM ONE (08:15)
[2022-06-07] MEDS ORDERED: HALOPERIDOL LACTATE 5MG/ML VIAL IM PRN (08:30)
[2022-06-07 09:03] LABS: BG BASE EXCESS 5.1 mmol/L (-2.0-2.0); BG CARBOXYHEMOGLOBIN 0.1 % (0.5-1.5); BG DEOXYHEMOGLOBIN 3.2 % (0.0-5.0); BG FRACTION INSPIRED OXYGEN 100; BG HCO3 ACT 27.6 mmol/L (22.0-26.0); BG METHEMOGLOBIN 0.3 % (0.0-1.5); BG OXYGEN SATURATION 96.8 % (92.0-98.5); BG OXYHEMOGLOBIN 96.4 % (94.0-97.0); BG PCO2 32.5 mmHg (35.0-45.0); BG PH 7.547 (7.350-7.450); BG PO2 77.2 mmHg (75.0-100.0); BG SAMPLE SITE LEFT RADIAL; BG TOTAL HEMOGLOBIN 9.2 g/dL (12.0-18.0); BG TOTAL RESPIRATORY RATE 26 b/min; BG VENT MODE VENT - P/C
[2022-06-07] MEDS: FERROUS SULFATE 300MG/5ML UDC PO SCH ×2 (09:13→17:00)
[2022-06-07] MEDS: LEVETIRACETAM 1,000 MG in SODIUM CHLORIDE 0.9% 100 ML IV SCH ×2 (09:13→20:28)
[2022-06-07] MEDS: DOCUSATE SODIUM SUGAR FREE 100MG/10ML UDC NG SCH ×2 (09:14→17:44)
[2022-06-07] MEDS: CARBAMAZEPINE 200MG TABLET PO SCH ×2 (09:14→20:09)
[2022-06-07] MEDS: ASCORBIC ACID 500 MG TABLET NG SCH ×2 (09:14→17:00)
[2022-06-07] MEDS: LACTULOSE 20G/30ML UDC NG SCH (09:14)
[2022-06-07] MEDS: PHENYTOIN 100 MG/4 ML UDC GT SCH (09:14)
[2022-06-07] MEDS: FOLIC ACID 1MG TABLET PO SCH (09:14)
[2022-06-07] MEDS: PANTOPRAZOLE SODIUM 40 MG/VIAL IV SCH ×2 (09:15→20:08)
[2022-06-07] MEDS: SODIUM CHLORIDE 0.45% 1,000 ML IV SCH (09:15)
[2022-06-07] MEDS: LEVOTHYROXINE SODIUM 100 MCG/ VIAL IV SCH (09:17)
[2022-06-07] MEDS: VANCOMYCIN 1250MG in DEXTROSE 5% WATER 250ML IV SCH ×2 (09:23→20:09)
[2022-06-07 09:50] LABS: CHLORIDE 110 mEq/L (98-107); PHOSPHORUS 3.7 mg/dL (2.5-4.9)
[2022-06-07] MEDS: PROPOFOL 10MG/ML 100ML 100 ML IV PRN ×5 (10:52→23:53)
[2022-06-07] MEDS: ALBUTEROL (0.083%) 2.5MG/3ML NEB HHN PRN (12:10)
[2022-06-07] MEDS ORDERED: FUROSEMIDE 40MG/4ML VIAL IVP NR (12:45)
[2022-06-07] MEDS: CEFEPIME 2,000 MG in DEXT 5% WATER 100 ML IV SCH (13:13)
[2022-06-07] MEDS: DOXYCYCLINE 100 MG in DEXT 5% WATER 100 ML IV SCH ×2 (13:18→23:56)
[2022-06-07] MEDS: ACETAMINOPHEN 650MG/20.3ML UDC GT PRN (14:19)
[2022-06-07] MEDS: PHENYTOIN 100 MG/4 ML UDC NG SCH (20:20)
[2022-06-08] VITALS (58 sets, daily range): BP systolic 110–174; BP diastolic 48–103
[2022-06-08] MEDS: ACETYLCYSTEINE 200MG/ML 20% VIAL 4ML INH SCH ×4 (00:17→13:55)
[2022-06-08] MEDS: METOCLOPRAMIDE HCL 10MG/2ML VIAL IV SCH ×5 (00:55→23:37)
[2022-06-08] MEDS: CEFEPIME 2,000 MG in DEXT 5% WATER 100 ML IV SCH ×2 (00:55→13:05)
[2022-06-08] MEDS: MIDAZOLAM HCL 100 MG in SODIUM CHLORIDE 0.9% 80 ML IV PRN ×4 (01:46→21:16)
[2022-06-08] MEDS: ALBUTEROL (0.083%) 2.5MG/3ML NEB HHN PRN ×3 (02:41→13:55)
[2022-06-08] MEDS: FENTANYL 2500MCG/250ML PMX 250 ML IV PRN ×3 (03:36→17:37)
[2022-06-08] MEDS: PROPOFOL 10MG/ML 100ML 100 ML IV PRN ×2 (04:41→22:37)
[2022-06-08] MEDS: METHYLPREDNISOLONE SOD SUCC 125 MG/2 ML VIAL IV SCH ×3 (05:57→21:15)
[2022-06-08 06:32] LABS: HEMATOCRIT. 25.5 % (36.0-48.0); HEMOGLOBIN. 8.4 g/dL (12.0-16.0); MEAN CORPUSCULAR HEMOGLOBIN 33.7 pg (28.0-32.0); MEAN CORPUSCULAR VOLUME 102.4 fL (81.0-99.0); MEAN PLATELET VOLUME 9.7 fl (7.4-10.4); PLATELET 217 x1000/uL (130-400); RED BLOOD CELL COUNT 2.49 mill/uL (4.2-5.4); RED CELL DISTRIBUTION WIDTH 14.1 % (11.6-14.6)
[2022-06-08] MEDS: FOLIC ACID 1MG TABLET PO SCH (08:29)
[2022-06-08] MEDS: PHENYTOIN 100 MG/4 ML UDC GT SCH (08:29)
[2022-06-08] MEDS: FERROUS SULFATE 300MG/5ML UDC PO SCH ×2 (08:30→17:36)
[2022-06-08] MEDS: PANTOPRAZOLE SODIUM 40 MG/VIAL IV SCH ×2 (08:30→21:15)
[2022-06-08] MEDS: CARBAMAZEPINE 200MG TABLET PO SCH ×2 (08:30→21:14)
[2022-06-08] MEDS: DOCUSATE SODIUM SUGAR FREE 100MG/10ML UDC NG SCH ×2 (08:30→17:37)
[2022-06-08] MEDS: LACTULOSE 20G/30ML UDC NG SCH (08:30)
[2022-06-08] MEDS: LEVOTHYROXINE SODIUM 100 MCG/ VIAL IV SCH (08:31)
[2022-06-08] MEDS: ASCORBIC ACID 500 MG TABLET NG SCH ×2 (08:31→17:36)
[2022-06-08 08:55] LABS: BG BASE EXCESS 5.5 mmol/L (-2.0-2.0); BG CARBOXYHEMOGLOBIN 0.3 % (0.5-1.5); BG DEOXYHEMOGLOBIN 6.2 % (0.0-5.0); BG FRACTION INSPIRED OXYGEN 100; BG HCO3 ACT 31.5 mmol/L (22.0-26.0); BG METHEMOGLOBIN 0.3 % (0.0-1.5); BG OXYGEN SATURATION 93.8 % (92.0-98.5); BG OXYHEMOGLOBIN 93.2 % (94.0-97.0); BG PCO2 53.2 mmHg (35.0-45.0); BG PO2 66.9 mmHg (75.0-100.0); BG SAMPLE SITE RIGHT RADIAL; BG TOTAL HEMOGLOBIN 10.1 g/dL (12.0-18.0); BG VENT MODE VENT - P/C
[2022-06-08] MEDS: LEVETIRACETAM 1,000 MG in SODIUM CHLORIDE 0.9% 100 ML IV SCH ×2 (08:59→21:15)
[2022-06-08] MEDS: VANCOMYCIN 1250MG in DEXTROSE 5% WATER 250ML IV SCH ×2 (08:59→21:14)
[2022-06-08 09:15] LABS: CHLORIDE 109 mEq/L (98-107)
[2022-06-08 10:05] LABS: T4 FREE 0.77 ng/dL (0.76-1.46)
[2022-06-08 10:44] LABS: PLATELET ESTIMATE NORMAL
[2022-06-08] MEDS ORDERED: POLYMYXIN B SULFATE/TMP 10ML BOTTLE BOTHEYE SCH (12:00)
[2022-06-08] MEDS: DOXYCYCLINE 100 MG in DEXT 5% WATER 100 ML IV SCH ×2 (13:05→23:37)
[2022-06-08] MEDS ORDERED: LACTULOSE ENEMA 1,000ML BOTTLE PR NR (16:00)
[2022-06-08] MEDS ORDERED: METHYLPREDNISOLONE SOD SUCC 125 MG/2 ML VIAL IV SCH (21:00)
[2022-06-08] MEDS: PHENYTOIN 100 MG/4 ML UDC NG SCH (21:14)
[2022-06-08] MEDS: AMLODIPINE 5MG TABLET PO SCH (21:14)
[2022-06-09] VITALS (46 sets, daily range): BP systolic 118–156; BP diastolic 54–84
[2022-06-09] MEDS: FENTANYL 2500MCG/250ML PMX 250 ML IV PRN ×4 (00:14→22:07)
[2022-06-09] MEDS: ALBUTEROL (0.083%) 2.5MG/3ML NEB HHN PRN (00:30)
[2022-06-09] MEDS: MIDAZOLAM HCL 100 MG in SODIUM CHLORIDE 0.9% 80 ML IV PRN ×3 (04:04→18:18)
[2022-06-09] MEDS: METOCLOPRAMIDE HCL 10MG/2ML VIAL IV SCH ×3 (05:22→18:00)
[2022-06-09] MEDS: METHYLPREDNISOLONE SOD SUCC 125 MG/2 ML VIAL IV SCH ×3 (05:22→22:39)
[2022-06-09 05:41] LABS: HEMATOCRIT. 27.7 % (36.0-48.0); HEMOGLOBIN. 8.7 g/dL (12.0-16.0); MEAN CORPUSCULAR HEMOGLOBIN 32.1 pg (28.0-32.0); MEAN CORPUSCULAR VOLUME 102.4 fL (81.0-99.0); MEAN PLATELET VOLUME 9.8 fl (7.4-10.4); PLATELET 238 x1000/uL (130-400); RED CELL DISTRIBUTION WIDTH 14.2 % (11.6-14.6)
[2022-06-09 05:43] LABS: CHLORIDE 109 mEq/L (98-107)
[2022-06-09 05:53] LABS: PHOSPHORUS 3.7 mg/dL (2.5-4.9)
[2022-06-09] MEDS: LEVOTHYROXINE SODIUM 100 MCG/ VIAL IV SCH (07:50)
[2022-06-09] MEDS: FOLIC ACID 1MG TABLET PO SCH (08:45)
[2022-06-09] MEDS: ASCORBIC ACID 500 MG TABLET NG SCH ×2 (08:45→17:04)
[2022-06-09] MEDS: PANTOPRAZOLE SODIUM 40 MG/VIAL IV SCH ×2 (08:45→22:09)
[2022-06-09] MEDS: CARBAMAZEPINE 200MG TABLET PO SCH ×2 (08:45→22:08)
[2022-06-09] MEDS: AMLODIPINE 5MG TABLET PO SCH ×2 (08:45→22:09)
[2022-06-09] MEDS: LACTULOSE 20G/30ML UDC NG SCH (08:46)
[2022-06-09] MEDS: FERROUS SULFATE 300MG/5ML UDC PO SCH ×2 (08:46→17:04)
[2022-06-09] MEDS: PHENYTOIN 100 MG/4 ML UDC GT SCH (08:46)
[2022-06-09] MEDS: DOCUSATE SODIUM SUGAR FREE 100MG/10ML UDC NG SCH ×2 (08:46→17:04)
[2022-06-09 08:53] LABS: BG BASE EXCESS 6.3 mmol/L (-2.0-2.0); BG CARBOXYHEMOGLOBIN 0.3 % (0.5-1.5); BG DEOXYHEMOGLOBIN 1.3 % (0.0-5.0); BG FRACTION INSPIRED OXYGEN 100; BG HCO3 ACT 28.9 mmol/L (22.0-26.0); BG METHEMOGLOBIN 0.2 % (0.0-1.5); BG OXYGEN SATURATION 98.7 % (92.0-98.5); BG OXYHEMOGLOBIN 98.2 % (94.0-97.0); BG PCO2 33.6 mmHg (35.0-45.0); BG PH 7.552 (7.350-7.450); BG PO2 104.4 mmHg (75.0-100.0); BG SAMPLE SITE RIGHT RADIAL; BG TOTAL HEMOGLOBIN 8.8 g/dL (12.0-18.0); BG VENT MODE VENT - P/C
[2022-06-09] MEDS: LEVETIRACETAM 1,000 MG in SODIUM CHLORIDE 0.9% 100 ML IV SCH ×2 (09:00→22:07)
[2022-06-09 10:09] LABS: PLATELET ESTIMATE NORMAL
[2022-06-09] MEDS: PROPOFOL 10MG/ML 100ML 100 ML IV PRN ×4 (12:14→22:07)
[2022-06-09] MEDS: ALBUTEROL (0.083%) 2.5MG/3ML NEB HHN SCH ×3 (12:21→20:11)
[2022-06-09] MEDS ORDERED: FUROSEMIDE 40MG/4ML VIAL IVP NR (13:00)
[2022-06-09] MEDS ORDERED: ACETYLCYSTEINE 100MG/ML 10% VIAL 4ML INH SCH (14:00)
[2022-06-09] MEDS: VANCOMYCIN 1250MG in DEXTROSE 5% WATER 250ML IV SCH ×2 (14:21→22:38)
[2022-06-09] MEDS ORDERED: LACTULOSE ENEMA 1,000ML BOTTLE PR ONE (17:00)
[2022-06-09] MEDS: PREDNISOLONE ACETATE 1% OPHTH DROPS 5ML BOTHEYE SCH (18:00)
[2022-06-09] MEDS ORDERED: MIDAZOLAM 100MG/100ML PMX 100 ML IV PRN (21:45)
[2022-06-09] MEDS: PHENYTOIN 100 MG/4 ML UDC NG SCH (22:08)
[2022-06-09] MEDS: NEO/POLYMYX B SULF/DEXAMETH OPHTH OINT 3.5GM BOTHEYE SCH (22:39)
[2022-06-10] VITALS (88 sets, daily range): BP systolic 101–148; BP diastolic 44–109
[2022-06-10] MEDS: ALBUTEROL (0.083%) 2.5MG/3ML NEB HHN SCH ×6 (00:20→20:15)
[2022-06-10] MEDS: PREDNISOLONE ACETATE 1% OPHTH DROPS 5ML BOTHEYE SCH ×4 (00:21→17:48)
[2022-06-10] MEDS: METOCLOPRAMIDE HCL 10MG/2ML VIAL IV SCH ×4 (00:21→17:48)
[2022-06-10] MEDS: ACETYLCYSTEINE 200MG/ML 20% VIAL 4ML INH SCH ×3 (00:21→16:38)
[2022-06-10] MEDS: MIDAZOLAM HCL 100 MG in SODIUM CHLORIDE 0.9% 100 ML IV PRN ×3 (02:02→22:52)
[2022-06-10] MEDS: LACTULOSE ENEMA 1,000ML BOTTLE PR NR ×2 (04:00→04:38)
[2022-06-10] MEDS: PROPOFOL 10MG/ML 100ML 100 ML IV PRN ×4 (04:36→17:48)
[2022-06-10] MEDS: FENTANYL 2500MCG/250ML PMX 250 ML IV PRN ×3 (05:07→19:06)
[2022-06-10 05:26] LABS: BASOPHILS % 0.4 % (0.0-2.0); EOSINOPHILS % 0.9 % (0.0-5.0); HEMATOCRIT. 26.3 % (36.0-48.0); HEMOGLOBIN. 8.5 g/dL (12.0-16.0); LYMPHOCYTES % 11.4 % (20.0-50.0); MEAN CORPUSCULAR VOLUME 99.4 fL (81.0-99.0); MEAN PLATELET VOLUME 9.8 fl (7.4-10.4); MONOCYTES % 6.3 % (2.0-8.0); PLATELET 263 x1000/uL (130-400); RED BLOOD CELL COUNT 2.65 mill/uL (4.2-5.4); RED CELL DISTRIBUTION WIDTH 14.3 % (11.6-14.6)
[2022-06-10] MEDS: NEO/POLYMYX B SULF/DEXAMETH OPHTH OINT 3.5GM BOTHEYE SCH ×3 (06:20→21:58)
[2022-06-10] MEDS: METHYLPREDNISOLONE SOD SUCC 125 MG/2 ML VIAL IV SCH ×3 (06:21→21:57)
[2022-06-10 07:18] LABS: CHLORIDE 111 mEq/L (98-107)
[2022-06-10] MEDS ORDERED: POTASSIUM CHLORIDE INJ 40 MEQ in DEXT 5% WATER 250 ML IV ONE (08:30)
[2022-06-10] MEDS ORDERED: SODIUM CHLORIDE 0.45% 1,000 ML IV ONE (09:00)
[2022-06-10] MEDS: PANTOPRAZOLE SODIUM 40 MG/VIAL IV SCH ×2 (09:52→20:19)
[2022-06-10] MEDS: LACTULOSE 20G/30ML UDC NG SCH (09:52)
[2022-06-10] MEDS: FERROUS SULFATE 300MG/5ML UDC PO SCH ×2 (09:55→17:48)
[2022-06-10] MEDS: DOCUSATE SODIUM SUGAR FREE 100MG/10ML UDC NG SCH ×2 (09:56→17:47)
[2022-06-10] MEDS: PHENYTOIN 100 MG/4 ML UDC GT SCH (09:57)
[2022-06-10] MEDS: LEVOTHYROXINE SODIUM 100 MCG/ VIAL IV SCH (09:57)
[2022-06-10] MEDS: ASCORBIC ACID 500 MG TABLET NG SCH ×2 (09:57→17:47)
[2022-06-10] MEDS: CARBAMAZEPINE 200MG TABLET PO SCH ×2 (09:57→20:21)
[2022-06-10] MEDS: VANCOMYCIN 1250MG in DEXTROSE 5% WATER 250ML IV SCH ×2 (09:58→20:19)
[2022-06-10] MEDS: AMLODIPINE 5MG TABLET PO SCH ×2 (09:58→20:21)
[2022-06-10] MEDS: FOLIC ACID 1MG TABLET PO SCH (09:58)
[2022-06-10] MEDS: KCL 20MEQ/100ML X 2 FOR TOTAL KCL 40MEQ/200ML IV SCH ×2 (09:59→12:59)
[2022-06-10] MEDS: LEVETIRACETAM 1,000 MG in SODIUM CHLORIDE 0.9% 100 ML IV SCH ×2 (09:59→21:57)
[2022-06-10] MEDS ORDERED: FENTANYL 2500MCG/250ML PMX 250 ML IV ONE (12:15)
[2022-06-10] MEDS ORDERED: FUROSEMIDE 20MG/2ML VIAL IVP NR (12:30)
[2022-06-10 12:32] LABS: BG BASE EXCESS 7.3 mmol/L (-2.0-2.0); BG CARBOXYHEMOGLOBIN 0.3 % (0.5-1.5); BG DEOXYHEMOGLOBIN 2.4 % (0.0-5.0); BG FRACTION INSPIRED OXYGEN 100; BG HCO3 ACT 31.5 mmol/L (22.0-26.0); BG METHEMOGLOBIN 0.2 % (0.0-1.5); BG OXYGEN SATURATION 97.6 % (92.0-98.5); BG OXYHEMOGLOBIN 97.1 % (94.0-97.0); BG PCO2 43.3 mmHg (35.0-45.0); BG PO2 98.3 mmHg (75.0-100.0); BG SAMPLE SITE RIGHT RADIAL; BG TOTAL HEMOGLOBIN 8.5 g/dL (12.0-18.0); BG VENT MODE VENT - P/C
[2022-06-10] MEDS: PHENYTOIN 100 MG/4 ML UDC NG SCH (20:20)
[2022-06-11] VITALS (66 sets, daily range): BP systolic 106–158; BP diastolic 46–103
[2022-06-11] MEDS: ACETYLCYSTEINE 200MG/ML 20% VIAL 4ML INH SCH ×3 (00:08→15:56)
[2022-06-11] MEDS: ALBUTEROL (0.083%) 2.5MG/3ML NEB HHN SCH ×6 (00:08→20:10)
[2022-06-11] MEDS: PREDNISOLONE ACETATE 1% OPHTH DROPS 5ML BOTHEYE SCH ×4 (00:19→17:27)
[2022-06-11] MEDS: METOCLOPRAMIDE HCL 10MG/2ML VIAL IV SCH ×4 (00:19→17:27)
[2022-06-11] MEDS: FENTANYL 2500MCG/250ML PMX 250 ML IV PRN ×3 (01:51→18:28)
[2022-06-11] MEDS: PROPOFOL 10MG/ML 100ML 100 ML IV PRN ×3 (03:53→19:20)
[2022-06-11] MEDS: MIDAZOLAM HCL 100 MG in SODIUM CHLORIDE 0.9% 100 ML IV PRN ×3 (05:07→19:20)
[2022-06-11] MEDS: NEO/POLYMYX B SULF/DEXAMETH OPHTH OINT 3.5GM BOTHEYE SCH ×3 (05:07→21:28)
[2022-06-11] MEDS: METHYLPREDNISOLONE SOD SUCC 125 MG/2 ML VIAL IV SCH ×3 (05:08→21:27)
[2022-06-11 06:27] LABS: CHLORIDE 110 mEq/L (98-107)
[2022-06-11 06:32] LABS: PHOSPHORUS 3.5 mg/dL (2.5-4.9)
[2022-06-11 06:41] LABS: BASOPHILS % 0.6 % (0.0-2.0); EOSINOPHILS % 1.5 % (0.0-5.0); HEMATOCRIT. 24.5 % (36.0-48.0); HEMOGLOBIN. 7.9 g/dL (12.0-16.0); LYMPHOCYTES % 13.4 % (20.0-50.0); MEAN CORPUSCULAR HEMOGLOBIN 31.7 pg (28.0-32.0); MEAN CORPUSCULAR VOLUME 98.2 fL (81.0-99.0); MEAN PLATELET VOLUME 9.9 fl (7.4-10.4); MONOCYTES % 5.3 % (2.0-8.0); NEUTROPHILS % 79.2 % (40.0-76.0); PLATELET 262 x1000/uL (130-400); RED BLOOD CELL COUNT 2.49 mill/uL (4.2-5.4); RED CELL DISTRIBUTION WIDTH 14.9 % (11.6-14.6)
[2022-06-11] MEDS: VANCOMYCIN 1250MG in DEXTROSE 5% WATER 250ML IV SCH ×2 (08:52→21:28)
[2022-06-11] MEDS: PHENYTOIN 100 MG/4 ML UDC GT SCH (08:53)
[2022-06-11] MEDS: PANTOPRAZOLE SODIUM 40 MG/VIAL IV SCH ×2 (08:53→21:27)
[2022-06-11] MEDS: LEVETIRACETAM 1,000 MG in SODIUM CHLORIDE 0.9% 100 ML IV SCH ×2 (08:53→21:28)
[2022-06-11] MEDS: LEVOTHYROXINE SODIUM 100 MCG/ VIAL IV SCH (08:53)
[2022-06-11] MEDS: FERROUS SULFATE 300MG/5ML UDC PO SCH ×2 (08:53→17:26)
[2022-06-11] MEDS: FOLIC ACID 1MG TABLET PO SCH (08:53)
[2022-06-11] MEDS: ASCORBIC ACID 500 MG TABLET NG SCH ×2 (08:53→17:27)
[2022-06-11] MEDS: LACTULOSE 20G/30ML UDC NG SCH (08:53)
[2022-06-11] MEDS: AMLODIPINE 5MG TABLET PO SCH ×2 (08:54→21:28)
[2022-06-11] MEDS: CARBAMAZEPINE 200MG TABLET PO SCH ×2 (08:54→21:27)
[2022-06-11] MEDS: DOCUSATE SODIUM SUGAR FREE 100MG/10ML UDC NG SCH ×2 (08:55→17:27)
[2022-06-11 09:06] LABS: BG BASE EXCESS 6.8 mmol/L (-2.0-2.0); BG CARBOXYHEMOGLOBIN 0.3 % (0.5-1.5); BG DEOXYHEMOGLOBIN 4.5 % (0.0-5.0); BG FRACTION INSPIRED OXYGEN 100; BG HCO3 ACT 32.8 mmol/L (22.0-26.0); BG METHEMOGLOBIN 0.3 % (0.0-1.5); BG OXYGEN SATURATION 95.5 % (92.0-98.5); BG OXYHEMOGLOBIN 94.9 % (94.0-97.0); BG PCO2 54.8 mmHg (35.0-45.0); BG PH 7.395 (7.350-7.450); BG SAMPLE SITE RIGHT RADIAL; BG TOTAL HEMOGLOBIN 9.6 g/dL (12.0-18.0); BG TOTAL RESPIRATORY RATE 21 b/min; BG VENT MODE VENT - P/C
[2022-06-11] MEDS: ARIPIPRAZOLE 5MG TABLET PO SCH (17:27)
[2022-06-11] MEDS: PHENYTOIN 100 MG/4 ML UDC NG SCH (21:27)
[2022-06-12] VITALS (90 sets, daily range): BP systolic 99–158; BP diastolic 37–97
[2022-06-12] MEDS: ACETYLCYSTEINE 200MG/ML 20% VIAL 4ML INH SCH ×3 (00:10→16:03)
[2022-06-12] MEDS: ALBUTEROL (0.083%) 2.5MG/3ML NEB HHN SCH ×6 (00:11→20:15)
[2022-06-12] MEDS: PREDNISOLONE ACETATE 1% OPHTH DROPS 5ML BOTHEYE SCH ×5 (00:31→23:39)
[2022-06-12] MEDS: METOCLOPRAMIDE HCL 10MG/2ML VIAL IV SCH ×5 (00:31→23:38)
[2022-06-12] MEDS: FENTANYL 2500MCG/250ML PMX 250 ML IV PRN ×2 (00:47→08:44)
[2022-06-12] MEDS: PROPOFOL 10MG/ML 100ML 100 ML IV PRN ×4 (02:04→23:32)
[2022-06-12] MEDS: MIDAZOLAM HCL 100 MG in SODIUM CHLORIDE 0.9% 100 ML IV PRN ×4 (02:36→23:32)
[2022-06-12 04:47] LABS: BASOPHILS % 0.9 % (0.0-2.0); EOSINOPHILS % 2.2 % (0.0-5.0); HEMATOCRIT. 25.8 % (36.0-48.0); HEMOGLOBIN. 8.3 g/dL (12.0-16.0); LYMPHOCYTES % 17.4 % (20.0-50.0); MEAN CORPUSCULAR HEMOGLOBIN 32.9 pg (28.0-32.0); MEAN CORPUSCULAR VOLUME 101.9 fL (81.0-99.0); MEAN PLATELET VOLUME 9.8 fl (7.4-10.4); MONOCYTES % 6.6 % (2.0-8.0); NEUTROPHILS % 72.9 % (40.0-76.0); PLATELET 294 x1000/uL (130-400); RED BLOOD CELL COUNT 2.53 mill/uL (4.2-5.4); RED CELL DISTRIBUTION WIDTH 14.4 % (11.6-14.6)
[2022-06-12 04:50] LABS: CHLORIDE 107 mEq/L (98-107)
[2022-06-12] MEDS: METHYLPREDNISOLONE SOD SUCC 125 MG/2 ML VIAL IV SCH ×3 (05:55→22:01)
[2022-06-12] MEDS: NEO/POLYMYX B SULF/DEXAMETH OPHTH OINT 3.5GM BOTHEYE SCH ×3 (05:56→22:24)
[2022-06-12 08:44] LABS: BG BASE EXCESS 6.4 mmol/L (-2.0-2.0); BG CARBOXYHEMOGLOBIN 0.1 % (0.5-1.5); BG DEOXYHEMOGLOBIN 11.4 % (0.0-5.0); BG FRACTION INSPIRED OXYGEN 90; BG HCO3 ACT 32.8 mmol/L (22.0-26.0); BG METHEMOGLOBIN 0.1 % (0.0-1.5); BG OXYGEN SATURATION 88.6 % (92.0-98.5); BG OXYHEMOGLOBIN 88.4 % (94.0-97.0); BG PCO2 57.6 mmHg (35.0-45.0); BG PH 7.373 (7.350-7.450); BG PO2 58.1 mmHg (75.0-100.0); BG SAMPLE SITE LEFT RADIAL; BG TOTAL HEMOGLOBIN 9.8 g/dL (12.0-18.0); BG TOTAL RESPIRATORY RATE 21 b/min; BG VENT MODE VENT - P/C
[2022-06-12] MEDS: DOCUSATE SODIUM SUGAR FREE 100MG/10ML UDC NG SCH ×2 (08:45→17:00)
[2022-06-12] MEDS: LACTULOSE 20G/30ML UDC NG SCH (08:45)
[2022-06-12] MEDS: LEVETIRACETAM 1,000 MG in SODIUM CHLORIDE 0.9% 100 ML IV SCH ×2 (08:45→22:00)
[2022-06-12] MEDS: PANTOPRAZOLE SODIUM 40 MG/VIAL IV SCH ×2 (08:45→22:00)
[2022-06-12] MEDS: PHENYTOIN 100 MG/4 ML UDC GT SCH (08:45)
[2022-06-12] MEDS: FERROUS SULFATE 300MG/5ML UDC PO SCH ×2 (08:45→17:00)
[2022-06-12] MEDS: LEVOTHYROXINE SODIUM 100 MCG/ VIAL IV SCH (08:45)
[2022-06-12] MEDS: VANCOMYCIN 1250MG in DEXTROSE 5% WATER 250ML IV SCH (08:45)
[2022-06-12] MEDS: ASCORBIC ACID 500 MG TABLET NG SCH ×2 (08:45→17:00)
[2022-06-12] MEDS: FOLIC ACID 1MG TABLET PO SCH (08:46)
[2022-06-12] MEDS: CARBAMAZEPINE 200MG TABLET PO SCH ×2 (08:46→22:00)
[2022-06-12] MEDS: AMLODIPINE 5MG TABLET PO SCH ×2 (08:46→22:01)
[2022-06-12] MEDS: ARIPIPRAZOLE 5MG TABLET PO SCH (08:49)
[2022-06-12] MEDS: PHENYTOIN 100 MG/4 ML UDC NG SCH (22:00)
[2022-06-13] VITALS (91 sets, daily range): BP systolic 101–149; BP diastolic 47–82
[2022-06-13] MEDS: ALBUTEROL (0.083%) 2.5MG/3ML NEB HHN SCH ×6 (00:35→19:55)
[2022-06-13] MEDS: ACETYLCYSTEINE 200MG/ML 20% VIAL 4ML INH SCH ×3 (00:35→16:16)
[2022-06-13] MEDS: PROPOFOL 10MG/ML 100ML 100 ML IV PRN ×5 (02:02→22:37)
[2022-06-13 06:01] LABS: BASOPHILS % 1.4 % (0.0-2.0); EOSINOPHILS % 2.5 % (0.0-5.0); HEMATOCRIT. 25.5 % (36.0-48.0); HEMOGLOBIN. 8.5 g/dL (12.0-16.0); LYMPHOCYTES % 21.2 % (20.0-50.0); MEAN CORPUSCULAR HEMOGLOBIN 33.3 pg (28.0-32.0); MEAN CORPUSCULAR VOLUME 99.7 fL (81.0-99.0); MONOCYTES % 6.9 % (2.0-8.0); PLATELET 324 x1000/uL (130-400); RED BLOOD CELL COUNT 2.56 mill/uL (4.2-5.4); RED CELL DISTRIBUTION WIDTH 14.3 % (11.6-14.6)
[2022-06-13 06:13] LABS: CHLORIDE 108 mEq/L (98-107)
[2022-06-13] MEDS: MIDAZOLAM HCL 100 MG in SODIUM CHLORIDE 0.9% 100 ML IV PRN ×3 (06:18→21:00)
[2022-06-13] MEDS: METOCLOPRAMIDE HCL 10MG/2ML VIAL IV SCH ×3 (06:19→17:31)
[2022-06-13] MEDS: METHYLPREDNISOLONE SOD SUCC 125 MG/2 ML VIAL IV SCH ×3 (06:19→21:09)
[2022-06-13] MEDS: NEO/POLYMYX B SULF/DEXAMETH OPHTH OINT 3.5GM BOTHEYE SCH ×3 (06:20→21:09)
[2022-06-13] MEDS: PREDNISOLONE ACETATE 1% OPHTH DROPS 5ML BOTHEYE SCH ×3 (06:20→17:31)
[2022-06-13] MEDS: LEVOTHYROXINE SODIUM 100 MCG/ VIAL IV SCH (08:17)
[2022-06-13] MEDS: LACTULOSE 20G/30ML UDC NG SCH ×2 (08:17→17:06)
[2022-06-13] MEDS: DOCUSATE SODIUM SUGAR FREE 100MG/10ML UDC NG SCH ×2 (08:18→17:07)
[2022-06-13] MEDS: FERROUS SULFATE 300MG/5ML UDC PO SCH ×2 (08:19→17:06)
[2022-06-13] MEDS: PHENYTOIN 100 MG/4 ML UDC GT SCH (08:19)
[2022-06-13] MEDS: FOLIC ACID 1MG TABLET PO SCH (08:20)
[2022-06-13] MEDS: AMLODIPINE 5MG TABLET PO SCH ×2 (08:20→21:05)
[2022-06-13] MEDS: ASCORBIC ACID 500 MG TABLET NG SCH ×2 (08:20→17:07)
[2022-06-13] MEDS: PANTOPRAZOLE SODIUM 40 MG/VIAL IV SCH ×2 (08:20→21:04)
[2022-06-13] MEDS: LEVETIRACETAM 1,000 MG in SODIUM CHLORIDE 0.9% 100 ML IV SCH ×2 (08:24→21:04)
[2022-06-13] MEDS: CARBAMAZEPINE 200MG TABLET PO SCH ×2 (08:24→21:08)
[2022-06-13] MEDS: ARIPIPRAZOLE 5MG TABLET PO SCH ×2 (08:24→17:07)
[2022-06-13 09:01] LABS: BG BASE EXCESS 3.8 mmol/L (-2.0-2.0); BG CARBOXYHEMOGLOBIN 0.3 % (0.5-1.5); BG DEOXYHEMOGLOBIN 9.1 % (0.0-5.0); BG FRACTION INSPIRED OXYGEN 100; BG HCO3 ACT 28.7 mmol/L (22.0-26.0); BG METHEMOGLOBIN 0.3 % (0.0-1.5); BG OXYGEN SATURATION 90.8 % (92.0-98.5); BG OXYHEMOGLOBIN 90.3 % (94.0-97.0); BG PCO2 45.2 mmHg (35.0-45.0); BG PH 7.421 (7.350-7.450); BG PO2 64.4 mmHg (75.0-100.0); BG SAMPLE SITE RIGHT RADIAL; BG TOTAL HEMOGLOBIN 10.1 g/dL (12.0-18.0); BG VENT MODE VENT - P/C
[2022-06-13] MEDS: RIFAXIMIN 550 MG TABLET PO SCH ×2 (13:38→21:14)
[2022-06-13] MEDS ORDERED: FENTANYL CITRATE/PF 2,500 MCG in SODIUM CHLORIDE 0.9% 200 ML IV PRN (16:45)
[2022-06-13] MEDS ORDERED: FENTANYL 2500MCG/250ML PMX 250 ML IV PRN (17:00)
[2022-06-13] MEDS: FENTANYL 2500MCG/250ML PMX 250 ML IV PRN (17:31)
[2022-06-13] MEDS: PHENYTOIN 100 MG/4 ML UDC NG SCH (21:04)
[2022-06-14] VITALS (44 sets, daily range): BP systolic 99–175; BP diastolic 49–112
[2022-06-14] MEDS: ALBUTEROL (0.083%) 2.5MG/3ML NEB HHN SCH ×7 (00:12→23:55)
[2022-06-14] MEDS: ACETYLCYSTEINE 200MG/ML 20% VIAL 4ML INH SCH (00:12)
[2022-06-14] MEDS: METOCLOPRAMIDE HCL 10MG/2ML VIAL IV SCH ×5 (00:29→23:54)
[2022-06-14] MEDS: PREDNISOLONE ACETATE 1% OPHTH DROPS 5ML BOTHEYE SCH ×5 (00:30→23:54)
[2022-06-14] MEDS: PROPOFOL 10MG/ML 100ML 100 ML IV PRN ×5 (02:44→22:20)
[2022-06-14 06:00] LABS: BASOPHILS % 0.8 % (0.0-2.0); EOSINOPHILS % 1.2 % (0.0-5.0); HEMATOCRIT. 28.2 % (36.0-48.0); LYMPHOCYTES % 15.9 % (20.0-50.0); MEAN CORPUSCULAR HEMOGLOBIN 32.4 pg (28.0-32.0); MEAN CORPUSCULAR VOLUME 101.4 fL (81.0-99.0); MEAN PLATELET VOLUME 10.1 fl (7.4-10.4); MONOCYTES % 6.2 % (2.0-8.0); NEUTROPHILS % 75.9 % (40.0-76.0); PLATELET 334 x1000/uL (130-400); RED BLOOD CELL COUNT 2.78 mill/uL (4.2-5.4); RED CELL DISTRIBUTION WIDTH 14.5 % (11.6-14.6)
[2022-06-14] MEDS: METHYLPREDNISOLONE SOD SUCC 125 MG/2 ML VIAL IV SCH ×3 (06:34→21:32)
[2022-06-14] MEDS: NEO/POLYMYX B SULF/DEXAMETH OPHTH OINT 3.5GM BOTHEYE SCH ×3 (06:34→21:33)
[2022-06-14 07:09] LABS: CHLORIDE 107 mEq/L (98-107)
[2022-06-14 08:48] LABS: BG BASE EXCESS 6.8 mmol/L (-2.0-2.0); BG CARBOXYHEMOGLOBIN 0.4 % (0.5-1.5); BG DEOXYHEMOGLOBIN 1.4 % (0.0-5.0); BG FRACTION INSPIRED OXYGEN 100; BG HCO3 ACT 31.6 mmol/L (22.0-26.0); BG METHEMOGLOBIN 0.3 % (0.0-1.5); BG OXYGEN SATURATION 98.6 % (92.0-98.5); BG OXYHEMOGLOBIN 97.9 % (94.0-97.0); BG PCO2 47.1 mmHg (35.0-45.0); BG PH 7.445 (7.350-7.450); BG PO2 138.3 mmHg (75.0-100.0); BG SAMPLE SITE ALINE; BG TOTAL HEMOGLOBIN 8.9 g/dL (12.0-18.0); BG VENT MODE VENT - P/C
[2022-06-14] MEDS: PANTOPRAZOLE SODIUM 40 MG/VIAL IV SCH ×2 (08:52→21:26)
[2022-06-14] MEDS: LEVOTHYROXINE SODIUM 100 MCG/ VIAL IV SCH (08:52)
[2022-06-14] MEDS: FERROUS SULFATE 300MG/5ML UDC PO SCH ×2 (08:53→17:12)
[2022-06-14] MEDS: LACTULOSE 20G/30ML UDC NG SCH ×2 (08:53→17:12)
[2022-06-14] MEDS: PHENYTOIN 100 MG/4 ML UDC GT SCH (08:53)
[2022-06-14] MEDS: ASCORBIC ACID 500 MG TABLET NG SCH ×2 (08:54→17:12)
[2022-06-14] MEDS: ARIPIPRAZOLE 5MG TABLET PO SCH ×2 (08:54→17:12)
[2022-06-14] MEDS: FOLIC ACID 1MG TABLET PO SCH (08:54)
[2022-06-14] MEDS: CARBAMAZEPINE 200MG TABLET PO SCH ×2 (08:54→21:27)
[2022-06-14] MEDS: RIFAXIMIN 550 MG TABLET PO SCH ×2 (08:54→21:27)
[2022-06-14] MEDS: LEVETIRACETAM 1,000 MG in SODIUM CHLORIDE 0.9% 100 ML IV SCH (08:55)
[2022-06-14] MEDS: AMLODIPINE 5MG TABLET PO SCH ×2 (08:55→21:00)
[2022-06-14] MEDS: DOCUSATE SODIUM SUGAR FREE 100MG/10ML UDC NG SCH ×2 (08:55→17:14)
[2022-06-14] MEDS ORDERED: FUROSEMIDE 20MG/2ML VIAL IVP NR (12:00)
[2022-06-14] MEDS: MIDAZOLAM HCL 100 MG in SODIUM CHLORIDE 0.9% 100 ML IV PRN (19:29)
[2022-06-14] MEDS: PHENYTOIN 100 MG/4 ML UDC NG SCH (21:26)
[2022-06-14] MEDS: LACOSAMIDE 100 MG TABLET PO SCH (21:29)
[2022-06-15] VITALS (46 sets, daily range): BP systolic 89–143; BP diastolic 37–94
[2022-06-15] MEDS: ALBUTEROL (0.083%) 2.5MG/3ML NEB HHN SCH ×6 (04:30→23:52)
[2022-06-15] MEDS: PROPOFOL 10MG/ML 100ML 100 ML IV PRN ×6 (04:40→22:20)
[2022-06-15 05:26] LABS: BASOPHILS % 1.1 % (0.0-2.0); EOSINOPHILS % 1.5 % (0.0-5.0); HEMATOCRIT. 29.3 % (36.0-48.0); HEMOGLOBIN. 9.5 g/dL (12.0-16.0); LYMPHOCYTES % 12.1 % (20.0-50.0); MEAN CORPUSCULAR HEMOGLOBIN 32.1 pg (28.0-32.0); MEAN CORPUSCULAR VOLUME 98.7 fL (81.0-99.0); MEAN PLATELET VOLUME 9.7 fl (7.4-10.4); MONOCYTES % 6.2 % (2.0-8.0); NEUTROPHILS % 79.1 % (40.0-76.0); PLATELET 370 x1000/uL (130-400); RED BLOOD CELL COUNT 2.96 mill/uL (4.2-5.4); RED CELL DISTRIBUTION WIDTH 14.9 % (11.6-14.6)
[2022-06-15 05:37] LABS: CHLORIDE 105 mEq/L (98-107)
[2022-06-15] MEDS: METOCLOPRAMIDE HCL 10MG/2ML VIAL IV SCH ×4 (06:31→23:51)
[2022-06-15] MEDS: NEO/POLYMYX B SULF/DEXAMETH OPHTH OINT 3.5GM BOTHEYE SCH ×3 (06:31→22:11)
[2022-06-15] MEDS: PREDNISOLONE ACETATE 1% OPHTH DROPS 5ML BOTHEYE SCH ×4 (06:31→23:52)
[2022-06-15] MEDS: METHYLPREDNISOLONE SOD SUCC 125 MG/2 ML VIAL IV SCH ×2 (06:32→22:08)
[2022-06-15] MEDS ORDERED: POTASSIUM CHLORIDE 20MEQ/PACKET PO NR (07:15)
[2022-06-15] MEDS: PHENYTOIN 100 MG/4 ML UDC GT SCH (08:34)
[2022-06-15] MEDS: ACETAMINOPHEN 650MG/20.3ML UDC GT PRN (08:34)
[2022-06-15] MEDS: FERROUS SULFATE 300MG/5ML UDC PO SCH ×2 (08:34→17:42)
[2022-06-15] MEDS: ASCORBIC ACID 500 MG TABLET NG SCH ×2 (08:35→17:42)
[2022-06-15] MEDS: LACTULOSE 20G/30ML UDC NG SCH ×2 (08:35→17:42)
[2022-06-15] MEDS: DOCUSATE SODIUM SUGAR FREE 100MG/10ML UDC NG SCH ×2 (08:35→17:43)
[2022-06-15] MEDS: LACOSAMIDE 100 MG TABLET PO SCH ×2 (08:37→22:11)
[2022-06-15] MEDS: CARBAMAZEPINE 200MG TABLET PO SCH ×2 (08:37→22:10)
[2022-06-15] MEDS: ARIPIPRAZOLE 5MG TABLET PO SCH ×2 (08:37→17:42)
[2022-06-15] MEDS: PANTOPRAZOLE SODIUM 40 MG/VIAL IV SCH ×2 (08:37→22:08)
[2022-06-15] MEDS: FOLIC ACID 1MG TABLET PO SCH (08:37)
[2022-06-15] MEDS: RIFAXIMIN 550 MG TABLET PO SCH ×2 (08:37→22:11)
[2022-06-15] MEDS: AMLODIPINE 5MG TABLET PO SCH ×2 (08:37→21:00)
[2022-06-15] MEDS: LEVOTHYROXINE SODIUM 100 MCG/ VIAL IV SCH (08:38)
[2022-06-15] MEDS: MIDAZOLAM HCL 100 MG in SODIUM CHLORIDE 0.9% 80 ML IV PRN ×2 (08:44→22:20)
[2022-06-15 08:55] LABS: BG BASE EXCESS 8.3 mmol/L (-2.0-2.0); BG CARBOXYHEMOGLOBIN 0.3 % (0.5-1.5); BG DEOXYHEMOGLOBIN 9.9 % (0.0-5.0); BG FRACTION INSPIRED OXYGEN 70; BG HCO3 ACT 32.6 mmol/L (22.0-26.0); BG METHEMOGLOBIN 0.3 % (0.0-1.5); BG OXYHEMOGLOBIN 89.5 % (94.0-97.0); BG PCO2 44.7 mmHg (35.0-45.0); BG PH 7.481 (7.350-7.450); BG PO2 56.8 mmHg (75.0-100.0); BG SAMPLE SITE RIGHT RADIAL; BG TOTAL HEMOGLOBIN 9.8 g/dL (12.0-18.0); BG VENT MODE VENT - P/C
[2022-06-15] MEDS ORDERED: FUROSEMIDE 20MG/2ML VIAL IVP NR ×2 (10:45→21:00)
[2022-06-15] MEDS ORDERED: POTASSIUM CHLORIDE 20MEQ TABLET SR PO NR (16:30)
[2022-06-15] MEDS: PHENYTOIN 100 MG/4 ML UDC NG SCH (22:08)
[2022-06-16] VITALS (69 sets, daily range): BP systolic 79–123; BP diastolic 38–72
[2022-06-16] MEDS: PROPOFOL 10MG/ML 100ML 100 ML IV PRN ×6 (01:22→20:57)
[2022-06-16] MEDS: ALBUTEROL (0.083%) 2.5MG/3ML NEB HHN SCH ×5 (04:07→20:13)
[2022-06-16 05:32] LABS: BASOPHILS % 0.6 % (0.0-2.0); EOSINOPHILS % 2.1 % (0.0-5.0); HEMATOCRIT. 29.5 % (36.0-48.0); HEMOGLOBIN. 9.7 g/dL (12.0-16.0); LYMPHOCYTES % 13.8 % (20.0-50.0); MEAN CORPUSCULAR HEMOGLOBIN 32.4 pg (28.0-32.0); MEAN PLATELET VOLUME 9.8 fl (7.4-10.4); MONOCYTES % 5.8 % (2.0-8.0); NEUTROPHILS % 77.7 % (40.0-76.0); PLATELET 372 x1000/uL (130-400); RED BLOOD CELL COUNT 2.98 mill/uL (4.2-5.4)
[2022-06-16] MEDS: NEO/POLYMYX B SULF/DEXAMETH OPHTH OINT 3.5GM BOTHEYE SCH ×3 (05:37→21:00)
[2022-06-16] MEDS: ACETAMINOPHEN 650MG/20.3ML UDC GT PRN ×2 (05:37→08:50)
[2022-06-16] MEDS: PREDNISOLONE ACETATE 1% OPHTH DROPS 5ML BOTHEYE SCH ×3 (05:37→17:01)
[2022-06-16] MEDS: METOCLOPRAMIDE HCL 10MG/2ML VIAL IV SCH ×3 (05:37→17:01)
[2022-06-16 05:51] LABS: CHLORIDE 102 mEq/L (98-107)
[2022-06-16] MEDS: NOREPINEPHRINE 32 MG in DEXT 5% WATER 218 ML IV PRN (06:20)
[2022-06-16] MEDS: LEVOTHYROXINE SODIUM 100 MCG/ VIAL IV SCH ×2 (07:50→10:26)
[2022-06-16 08:36] LABS: BG BASE EXCESS 9.5 mmol/L (-2.0-2.0); BG CARBOXYHEMOGLOBIN 0.3 % (0.5-1.5); BG DEOXYHEMOGLOBIN 9.7 % (0.0-5.0); BG FRACTION INSPIRED OXYGEN 70; BG HCO3 ACT 34.4 mmol/L (22.0-26.0); BG METHEMOGLOBIN 0.1 % (0.0-1.5); BG OXYGEN SATURATION 90.3 % (92.0-98.5); BG OXYHEMOGLOBIN 89.9 % (94.0-97.0); BG PCO2 49.3 mmHg (35.0-45.0); BG PH 7.462 (7.350-7.450); BG PO2 59.6 mmHg (75.0-100.0); BG SAMPLE SITE LEFT RADIAL; BG TOTAL HEMOGLOBIN 9.2 g/dL (12.0-18.0); BG TOTAL RESPIRATORY RATE 18 b/min; BG VENT MODE VENT - P/C
[2022-06-16] MEDS: MIDAZOLAM HCL 100 MG in SODIUM CHLORIDE 0.9% 80 ML IV PRN ×2 (08:48→22:00)
[2022-06-16] MEDS: PHENYTOIN 100 MG/4 ML UDC GT SCH (08:50)
[2022-06-16] MEDS: RIFAXIMIN 550 MG TABLET PO SCH ×2 (08:50→20:58)
[2022-06-16] MEDS: FERROUS SULFATE 300MG/5ML UDC PO SCH ×2 (08:51→16:47)
[2022-06-16] MEDS: LACOSAMIDE 100 MG TABLET PO SCH ×2 (08:51→20:58)
[2022-06-16] MEDS: CARBAMAZEPINE 200MG TABLET PO SCH ×2 (08:51→20:58)
[2022-06-16] MEDS: ASCORBIC ACID 500 MG TABLET NG SCH ×2 (08:51→16:57)
[2022-06-16] MEDS: METHYLPREDNISOLONE SOD SUCC 125 MG/2 ML VIAL IV SCH ×2 (08:51→20:58)
[2022-06-16] MEDS: AMLODIPINE 5MG TABLET PO SCH ×2 (08:52→20:58)
[2022-06-16] MEDS: ARIPIPRAZOLE 5MG TABLET PO SCH ×2 (08:52→16:48)
[2022-06-16] MEDS: DOCUSATE SODIUM SUGAR FREE 100MG/10ML UDC NG SCH ×2 (08:53→16:57)
[2022-06-16] MEDS: PANTOPRAZOLE SODIUM 40 MG/VIAL IV SCH ×2 (08:53→20:58)
[2022-06-16] MEDS: LACTULOSE 20G/30ML UDC NG SCH ×2 (08:53→16:47)
[2022-06-16] MEDS: FOLIC ACID 1MG TABLET PO SCH (08:57)
[2022-06-16] MEDS ORDERED: FUROSEMIDE 20MG/2ML VIAL IVP NR (10:00)
[2022-06-16] MEDS ORDERED: POTASSIUM CHLORIDE INJ 40 MEQ in DEXT 5% WATER 250 ML IV ONE (10:00)
[2022-06-16] MEDS: PHENYTOIN 100 MG/4 ML UDC NG SCH (20:58)
[2022-06-17] VITALS (45 sets, daily range): BP systolic 83–137; BP diastolic 36–65
[2022-06-17] MEDS: METOCLOPRAMIDE HCL 10MG/2ML VIAL IV SCH ×5 (00:09→23:30)
[2022-06-17] MEDS: PREDNISOLONE ACETATE 1% OPHTH DROPS 5ML BOTHEYE SCH ×5 (00:09→23:30)
[2022-06-17] MEDS: ALBUTEROL (0.083%) 2.5MG/3ML NEB HHN SCH ×6 (00:13→20:12)
[2022-06-17] MEDS: FENTANYL CITRATE 2,500 MCG in SODIUM CHLORIDE 0.9% 200 ML IV PRN (00:57)
[2022-06-17] MEDS: PROPOFOL 10MG/ML 100ML 100 ML IV PRN ×6 (00:58→23:20)
[2022-06-17 05:50] LABS: BASOPHILS % 0.6 % (0.0-2.0); EOSINOPHILS % 2.1 % (0.0-5.0); HEMATOCRIT. 27.5 % (36.0-48.0); HEMOGLOBIN. 9.1 g/dL (12.0-16.0); LYMPHOCYTES % 19.7 % (20.0-50.0); MEAN CORPUSCULAR HEMOGLOBIN 32.8 pg (28.0-32.0); MEAN CORPUSCULAR VOLUME 99.4 fL (81.0-99.0); MEAN PLATELET VOLUME 10.2 fl (7.4-10.4); MONOCYTES % 5.1 % (2.0-8.0); NEUTROPHILS % 72.5 % (40.0-76.0); PLATELET 290 x1000/uL (130-400); RED BLOOD CELL COUNT 2.77 mill/uL (4.2-5.4); RED CELL DISTRIBUTION WIDTH 14.8 % (11.6-14.6)
[2022-06-17 05:52] LABS: CHLORIDE 103 mEq/L (98-107)
[2022-06-17 06:14] LABS: PHOSPHORUS 3.7 mg/dL (2.5-4.9)
[2022-06-17] MEDS ORDERED: POTASSIUM CHLORIDE 20MEQ/PACKET PO NR (07:00)
[2022-06-17] MEDS ORDERED: FUROSEMIDE 20MG/2ML VIAL IVP NR (08:15)
[2022-06-17] MEDS ORDERED: KCL 20MEQ/100ML PREMIX 100 ML IV NR (08:15)
[2022-06-17 08:56] LABS: BG CARBOXYHEMOGLOBIN 0.3 % (0.5-1.5); BG DEOXYHEMOGLOBIN 3.9 % (0.0-5.0); BG FRACTION INSPIRED OXYGEN 80; BG HCO3 ACT 34.6 mmol/L (22.0-26.0); BG METHEMOGLOBIN 0.2 % (0.0-1.5); BG OXYGEN SATURATION 96.1 % (92.0-98.5); BG OXYHEMOGLOBIN 95.6 % (94.0-97.0); BG PCO2 53.3 mmHg (35.0-45.0); BG PO2 88.1 mmHg (75.0-100.0); BG SAMPLE SITE LEFT RADIAL; BG TOTAL HEMOGLOBIN 9.4 g/dL (12.0-18.0); BG TOTAL RESPIRATORY RATE 20 b/min; BG VENT MODE VENT - P/C
[2022-06-17] MEDS: AMLODIPINE 5MG TABLET PO SCH ×2 (09:00→20:48)
[2022-06-17] MEDS: LACTULOSE 20G/30ML UDC NG SCH ×2 (09:08→18:12)
[2022-06-17] MEDS: FERROUS SULFATE 300MG/5ML UDC PO SCH ×2 (09:08→18:13)
[2022-06-17] MEDS: ARIPIPRAZOLE 5MG TABLET PO SCH ×2 (09:09→18:12)
[2022-06-17] MEDS: RIFAXIMIN 550 MG TABLET PO SCH (09:09)
[2022-06-17] MEDS: PANTOPRAZOLE SODIUM 40 MG/VIAL IV SCH ×2 (09:09→20:48)
[2022-06-17] MEDS: FOLIC ACID 1MG TABLET PO SCH (09:09)
[2022-06-17] MEDS: ASCORBIC ACID 500 MG TABLET NG SCH ×2 (09:09→18:12)
[2022-06-17] MEDS: METHYLPREDNISOLONE SOD SUCC 40 MG/ML VIAL IV SCH ×2 (09:10→20:48)
[2022-06-17] MEDS: DOCUSATE SODIUM SUGAR FREE 100MG/10ML UDC NG SCH ×2 (09:10→17:00)
[2022-06-17] MEDS: LACOSAMIDE 100 MG TABLET PO SCH ×2 (09:11→20:49)
[2022-06-17] MEDS: CARBAMAZEPINE 200MG TABLET PO SCH ×2 (09:11→20:49)
[2022-06-17] MEDS: PHENYTOIN 100 MG/4 ML UDC GT SCH (09:15)
[2022-06-17] MEDS: LEVOTHYROXINE SODIUM 100 MCG/ VIAL IV SCH (09:16)
[2022-06-17] MEDS ORDERED: [UNRECOGNIZED DRUG - REMARK] XX SCH (10:30)
[2022-06-17] MEDS: MIDAZOLAM HCL 100 MG in SODIUM CHLORIDE 0.9% 80 ML IV PRN (15:09)
[2022-06-17] MEDS: PHENYTOIN 100 MG/4 ML UDC NG SCH (20:48)
[2022-06-18] VITALS (41 sets, daily range): BP systolic 78–136; BP diastolic 28–88
[2022-06-18] MEDS: ALBUTEROL (0.083%) 2.5MG/3ML NEB HHN SCH ×6 (00:35→20:18)
[2022-06-18] MEDS: MIDAZOLAM HCL 100 MG in SODIUM CHLORIDE 0.9% 80 ML IV PRN ×2 (02:17→15:11)
[2022-06-18] MEDS: PROPOFOL 10MG/ML 100ML 100 ML IV PRN ×7 (02:17→21:41)
[2022-06-18] MEDS: FENTANYL CITRATE 2,500 MCG in SODIUM CHLORIDE 0.9% 200 ML IV PRN (04:11)
[2022-06-18] MEDS: PREDNISOLONE ACETATE 1% OPHTH DROPS 5ML BOTHEYE SCH ×3 (05:39→17:37)
[2022-06-18] MEDS: METOCLOPRAMIDE HCL 10MG/2ML VIAL IV SCH ×3 (05:41→17:36)
[2022-06-18 06:26] LABS: BASOPHILS % 1.4 % (0.0-2.0); EOSINOPHILS % 3.8 % (0.0-5.0); HEMATOCRIT. 25.9 % (36.0-48.0); HEMOGLOBIN. 8.6 g/dL (12.0-16.0); LYMPHOCYTES % 23.5 % (20.0-50.0); MEAN CORPUSCULAR HEMOGLOBIN 32.3 pg (28.0-32.0); MEAN CORPUSCULAR VOLUME 97.6 fL (81.0-99.0); MEAN PLATELET VOLUME 9.9 fl (7.4-10.4); MONOCYTES % 5.5 % (2.0-8.0); NEUTROPHILS % 65.8 % (40.0-76.0); PLATELET 280 x1000/uL (130-400); RED BLOOD CELL COUNT 2.66 mill/uL (4.2-5.4); RED CELL DISTRIBUTION WIDTH 14.6 % (11.6-14.6)
[2022-06-18 06:33] LABS: CHLORIDE 104 mEq/L (98-107)
[2022-06-18 06:48] LABS: T4 FREE 0.75 ng/dL (0.76-1.46)
[2022-06-18] MEDS: AMLODIPINE 5MG TABLET PO SCH ×2 (08:33→21:00)
[2022-06-18] MEDS: DOCUSATE SODIUM SUGAR FREE 100MG/10ML UDC NG SCH ×2 (09:00→17:36)
[2022-06-18 09:17] LABS: BG CARBOXYHEMOGLOBIN 0.6 % (0.5-1.5); BG DEOXYHEMOGLOBIN 12.6 % (0.0-5.0); BG FRACTION INSPIRED OXYGEN 70; BG HCO3 ACT 29.6 mmol/L (22.0-26.0); BG METHEMOGLOBIN 0.2 % (0.0-1.5); BG OXYGEN SATURATION 87.3 % (92.0-98.5); BG OXYHEMOGLOBIN 86.6 % (94.0-97.0); BG PCO2 38.7 mmHg (35.0-45.0); BG PH 7.501 (7.350-7.450); BG PO2 53.3 mmHg (75.0-100.0); BG SAMPLE SITE RIGHT RADIAL; BG TOTAL HEMOGLOBIN 8.8 g/dL (12.0-18.0); BG VENT MODE VENT - P/C
[2022-06-18] MEDS ORDERED: FUROSEMIDE 20MG/2ML VIAL IVP NR (09:30)
[2022-06-18] MEDS: ASCORBIC ACID 500 MG TABLET NG SCH ×2 (10:01→17:36)
[2022-06-18] MEDS: PANTOPRAZOLE SODIUM 40 MG/VIAL IV SCH ×2 (10:01→21:47)
[2022-06-18] MEDS: METHYLPREDNISOLONE SOD SUCC 40 MG/ML VIAL IV SCH ×2 (10:01→21:47)
[2022-06-18] MEDS: LACOSAMIDE 100 MG TABLET PO SCH ×2 (10:01→21:46)
[2022-06-18] MEDS: LEVOTHYROXINE SODIUM 100 MCG/ VIAL IV SCH (10:01)
[2022-06-18] MEDS: ARIPIPRAZOLE 5MG TABLET PO SCH ×2 (10:02→17:36)
[2022-06-18] MEDS: FOLIC ACID 1MG TABLET PO SCH (10:02)
[2022-06-18] MEDS: LACTULOSE 20G/30ML UDC NG SCH ×2 (10:03→17:36)
[2022-06-18] MEDS: CARBAMAZEPINE 200MG TABLET PO SCH ×2 (10:03→21:47)
[2022-06-18] MEDS: FERROUS SULFATE 300MG/5ML UDC PO SCH ×2 (10:03→17:36)
[2022-06-18] MEDS: PHENYTOIN 100 MG/4 ML UDC GT SCH (10:04)
[2022-06-18] MEDS ORDERED: POTASSIUM CHLORIDE INJ 40 MEQ in DEXT 5% WATER 500 ML IV NR (11:00)
[2022-06-18] MEDS: PHENYTOIN 100 MG/4 ML UDC NG SCH (21:47)
[2022-06-19] VITALS (46 sets, daily range): BP systolic 91–148; BP diastolic 36–89
[2022-06-19] MEDS: ALBUTEROL (0.083%) 2.5MG/3ML NEB HHN SCH ×4 (00:07→11:12)
[2022-06-19] MEDS: METOCLOPRAMIDE HCL 10MG/2ML VIAL IV SCH ×4 (00:26→18:35)
[2022-06-19] MEDS: PREDNISOLONE ACETATE 1% OPHTH DROPS 5ML BOTHEYE SCH ×4 (00:27→18:35)
[2022-06-19] MEDS: ACETAMINOPHEN 325MG TABLET PO PRN ×2 (00:48→05:17)
[2022-06-19] MEDS: PROPOFOL 10MG/ML 100ML 100 ML IV PRN ×5 (02:11→22:54)
[2022-06-19] MEDS: MIDAZOLAM HCL 100 MG in SODIUM CHLORIDE 0.9% 80 ML IV PRN (02:12)
[2022-06-19] MEDS: FENTANYL CITRATE 2,500 MCG in SODIUM CHLORIDE 0.9% 200 ML IV PRN (02:13)
[2022-06-19 04:43] LABS: BASOPHILS % 0.8 % (0.0-2.0); EOSINOPHILS % 2.5 % (0.0-5.0); HEMATOCRIT. 27.4 % (36.0-48.0); HEMOGLOBIN. 9.1 g/dL (12.0-16.0); LYMPHOCYTES % 19.9 % (20.0-50.0); MEAN CORPUSCULAR HEMOGLOBIN 32.6 pg (28.0-32.0); MEAN CORPUSCULAR VOLUME 97.9 fL (81.0-99.0); MEAN PLATELET VOLUME 9.5 fl (7.4-10.4); MONOCYTES % 5.9 % (2.0-8.0); NEUTROPHILS % 70.9 % (40.0-76.0); PLATELET 306 x1000/uL (130-400); RED CELL DISTRIBUTION WIDTH 14.5 % (11.6-14.6)
[2022-06-19 04:56] LABS: CHLORIDE 102 mEq/L (98-107)
[2022-06-19] MEDS ORDERED: FUROSEMIDE 20MG/2ML VIAL IVP NR ×2 (07:30→21:00)
[2022-06-19] MEDS ORDERED: POTASSIUM CHLORIDE INJ 40 MEQ in DEXT 5% WATER 250 ML IV ONE (07:30)
[2022-06-19] MEDS: DOCUSATE SODIUM SUGAR FREE 100MG/10ML UDC NG SCH ×2 (09:00→16:58)
[2022-06-19] MEDS: AMLODIPINE 5MG TABLET PO SCH ×2 (09:00→21:00)
[2022-06-19] MEDS: ARIPIPRAZOLE 5MG TABLET PO SCH ×2 (09:00→18:35)
[2022-06-19] MEDS: PANTOPRAZOLE SODIUM 40 MG/VIAL IV SCH ×2 (09:30→21:31)
[2022-06-19] MEDS: PHENYTOIN 100 MG/4 ML UDC GT SCH (09:31)
[2022-06-19 09:32] LABS: BG BASE EXCESS 5.3 mmol/L (-2.0-2.0); BG DEOXYHEMOGLOBIN 6.6 % (0.0-5.0); BG FRACTION INSPIRED OXYGEN 70; BG METHEMOGLOBIN 0.2 % (0.0-1.5); BG OXYGEN SATURATION 93.4 % (92.0-98.5); BG OXYHEMOGLOBIN 93.2 % (94.0-97.0); BG PCO2 33.5 mmHg (35.0-45.0); BG PO2 65.5 mmHg (75.0-100.0); BG SAMPLE SITE RIGHT RADIAL; BG TOTAL HEMOGLOBIN 9.1 g/dL (12.0-18.0); BG VENT MODE VENT - P/C
[2022-06-19] MEDS: KCL 20MEQ/100ML X 2 FOR TOTAL KCL 40MEQ/200ML IV SCH ×2 (09:33→11:16)
[2022-06-19] MEDS: METHYLPREDNISOLONE SOD SUCC 40 MG/ML VIAL IV SCH ×2 (09:34→21:31)
[2022-06-19] MEDS: LACTULOSE 20G/30ML UDC NG SCH ×2 (09:34→18:36)
[2022-06-19] MEDS: FERROUS SULFATE 300MG/5ML UDC PO SCH ×2 (09:35→18:33)
[2022-06-19] MEDS: FOLIC ACID 1MG TABLET PO SCH (09:36)
[2022-06-19] MEDS: LEVOTHYROXINE SODIUM 100 MCG/ VIAL IV SCH (09:36)
[2022-06-19] MEDS: LACOSAMIDE 100 MG TABLET PO SCH ×2 (09:37→21:47)
[2022-06-19] MEDS: ASCORBIC ACID 500 MG TABLET NG SCH ×2 (09:39→17:00)
[2022-06-19] MEDS: CARBAMAZEPINE 200MG TABLET PO SCH ×2 (09:41→21:33)
[2022-06-19] MEDS ORDERED: NALOXONE HCL 0.4MG/ML VIAL IV PRN (13:00)
[2022-06-19 18:22] LABS: INR 1.1; PROTHROMBIN TIME 11.3 sec (9.6-11.0)
[2022-06-19] MEDS: LORAZEPAM 2MG/ML CPJ IV PRN (20:00)
[2022-06-19] MEDS ORDERED: KCL 20MEQ/100ML PREMIX 100 ML IV NR (21:00)
[2022-06-19] MEDS: PHENYTOIN 100 MG/4 ML UDC NG SCH (21:33)
[2022-06-19] MEDS: MORPHINE SULFATE 2 MG/ML CPJ (NOT FOR IM USE) IV PRN (23:46)
[2022-06-20] VITALS (90 sets, daily range): BP systolic 71–143; BP diastolic 26–110
[2022-06-20] MEDS: METOCLOPRAMIDE HCL 10MG/2ML VIAL IV SCH ×4 (00:32→17:21)
[2022-06-20] MEDS: ACETAMINOPHEN 325MG TABLET PO PRN (00:32)
[2022-06-20] MEDS: PREDNISOLONE ACETATE 1% OPHTH DROPS 5ML BOTHEYE SCH ×4 (00:38→21:46)
[2022-06-20] MEDS: PROPOFOL 10MG/ML 100ML 100 ML IV PRN ×5 (01:34→20:30)
[2022-06-20 05:45] LABS: BASOPHILS % 0.8 % (0.0-2.0); EOSINOPHILS % 1.7 % (0.0-5.0); HEMATOCRIT. 28.2 % (36.0-48.0); HEMOGLOBIN. 9.5 g/dL (12.0-16.0); LYMPHOCYTES % 18.1 % (20.0-50.0); MEAN CORPUSCULAR HEMOGLOBIN 33.2 pg (28.0-32.0); MEAN CORPUSCULAR VOLUME 98.9 fL (81.0-99.0); MEAN PLATELET VOLUME 10.2 fl (7.4-10.4); MONOCYTES % 4.5 % (2.0-8.0); NEUTROPHILS % 74.9 % (40.0-76.0); PLATELET 299 x1000/uL (130-400); RED BLOOD CELL COUNT 2.85 mill/uL (4.2-5.4); RED CELL DISTRIBUTION WIDTH 14.2 % (11.6-14.6)
[2022-06-20 06:05] LABS: CHLORIDE 103 mEq/L (98-107)
[2022-06-20 06:14] LABS: PHOSPHORUS 4.1 mg/dL (2.5-4.9)
[2022-06-20 08:25] LABS: BG BASE EXCESS 4.3 mmol/L (-2.0-2.0); BG CARBOXYHEMOGLOBIN 0.3 % (0.5-1.5); BG DEOXYHEMOGLOBIN 0.8 % (0.0-5.0); BG FRACTION INSPIRED OXYGEN 70; BG HCO3 ACT 28.8 mmol/L (22.0-26.0); BG METHEMOGLOBIN 0.3 % (0.0-1.5); BG OXYGEN SATURATION 99.2 % (92.0-98.5); BG OXYHEMOGLOBIN 98.6 % (94.0-97.0); BG PH 7.444 (7.350-7.450); BG PO2 187.2 mmHg (75.0-100.0); BG SAMPLE SITE RIGHT RADIAL; BG TOTAL HEMOGLOBIN 9.8 g/dL (12.0-18.0); BG VENT MODE VENT - P/C
[2022-06-20] MEDS: CARBAMAZEPINE 200MG TABLET PO SCH ×2 (08:32→21:33)
[2022-06-20] MEDS: ARIPIPRAZOLE 5MG TABLET PO SCH ×2 (08:32→17:19)
[2022-06-20] MEDS: PHENYTOIN 100 MG/4 ML UDC GT SCH (08:32)
[2022-06-20] MEDS: LEVOTHYROXINE SODIUM 100 MCG/ VIAL IV SCH (08:32)
[2022-06-20] MEDS: PANTOPRAZOLE SODIUM 40 MG/VIAL IV SCH ×2 (08:32→21:32)
[2022-06-20] MEDS: LACOSAMIDE 100 MG TABLET PO SCH ×2 (08:32→21:32)
[2022-06-20] MEDS: METHYLPREDNISOLONE SOD SUCC 40 MG/ML VIAL IV SCH ×2 (08:32→21:32)
[2022-06-20] MEDS: LORAZEPAM 2MG/ML CPJ IV PRN (08:32)
[2022-06-20] MEDS: DOCUSATE SODIUM SUGAR FREE 100MG/10ML UDC NG SCH ×2 (08:33→17:18)
[2022-06-20] MEDS: LACTULOSE 20G/30ML UDC NG SCH ×2 (08:33→17:19)
[2022-06-20] MEDS: FOLIC ACID 1MG TABLET PO SCH (08:34)
[2022-06-20] MEDS: FERROUS SULFATE 300MG/5ML UDC PO SCH ×2 (08:34→17:19)
[2022-06-20] MEDS: AMLODIPINE 5MG TABLET PO SCH ×2 (08:34→21:00)
[2022-06-20] MEDS: ASCORBIC ACID 500 MG TABLET NG SCH ×2 (08:34→17:19)
[2022-06-20] MEDS ORDERED: ROCURONIUM BROMIDE 10MG/ML VIAL 5ML IV ONE ×4 (10:59→12:36)
[2022-06-20] MEDS ORDERED: FENTANYL CITRATE/PF 50MCG/ML 2ML VIAL ONE (11:00)
[2022-06-20] MEDS ORDERED: PHENYLEPHRINE HCL 10 MG/ML 1ML (IV VIAL) IV ONE (11:00)
[2022-06-20] MEDS ORDERED: PROPOFOL 200MG/20ML VIAL IV ONE (11:00)
[2022-06-20] MEDS ORDERED: CALCIUM CHLORIDE 1GM/10ML SYR IV ONE (11:16)
[2022-06-20] MEDS ORDERED: LIDOCAINE HCL/EPINEPHRINE 1%-EPI 1:100,000 20 ML VIAL ONE (11:57)
[2022-06-20] MEDS ORDERED: ALBUTEROL 6.7GM HFA INHALER ONE (11:57)
[2022-06-20] MEDS ORDERED: GLYCOPYRROLATE 0.2 MG/ML 2ML VIAL ONE (12:17)
[2022-06-20] MEDS ORDERED: VECURONIUM BROMIDE 10 MG/VIAL IV ONE (12:32)
[2022-06-20] MEDS: MORPHINE SULFATE 2 MG/ML CPJ (NOT FOR IM USE) IV PRN ×2 (13:18→21:46)
[2022-06-20 14:25] LABS: BG BASE EXCESS 6.1 mmol/L (-2.0-2.0); BG CARBOXYHEMOGLOBIN 0.3 % (0.5-1.5); BG DEOXYHEMOGLOBIN 0.7 % (0.0-5.0); BG FRACTION INSPIRED OXYGEN 70; BG HCO3 ACT 26.9 mmol/L (22.0-26.0); BG METHEMOGLOBIN 0.3 % (0.0-1.5); BG OXYGEN SATURATION 99.3 % (92.0-98.5); BG OXYHEMOGLOBIN 98.7 % (94.0-97.0); BG PCO2 26.2 mmHg (35.0-45.0); BG PO2 287.7 mmHg (75.0-100.0); BG SAMPLE SITE RIGHT RADIAL; BG TOTAL HEMOGLOBIN 9.4 g/dL (12.0-18.0)
[2022-06-20] MEDS: PHENYTOIN 100 MG/4 ML UDC NG SCH (21:33)
[2022-06-21] VITALS (93 sets, daily range): BP systolic 92–149; BP diastolic 35–95
[2022-06-21] MEDS: METOCLOPRAMIDE HCL 10MG/2ML VIAL IV SCH ×4 (00:29→17:14)
[2022-06-21] MEDS: PREDNISOLONE ACETATE 1% OPHTH DROPS 5ML BOTHEYE SCH ×4 (00:29→17:15)
[2022-06-21] MEDS: PROPOFOL 10MG/ML 100ML 100 ML IV PRN ×7 (00:30→22:02)
[2022-06-21 03:18] LABS: BASOPHILS % 0.4 % (0.0-2.0); EOSINOPHILS % 2.8 % (0.0-5.0); HEMATOCRIT. 27.4 % (36.0-48.0); HEMOGLOBIN. 9.2 g/dL (12.0-16.0); LYMPHOCYTES % 19.2 % (20.0-50.0); MEAN CORPUSCULAR HEMOGLOBIN 32.8 pg (28.0-32.0); MEAN CORPUSCULAR VOLUME 97.6 fL (81.0-99.0); MEAN PLATELET VOLUME 8.8 fl (7.4-10.4); MONOCYTES % 6.7 % (2.0-8.0); NEUTROPHILS % 70.9 % (40.0-76.0); PLATELET 270 x1000/uL (130-400); RED BLOOD CELL COUNT 2.81 mill/uL (4.2-5.4); RED CELL DISTRIBUTION WIDTH 14.7 % (11.6-14.6)
[2022-06-21 03:24] LABS: INR 1.1; PROTHROMBIN TIME 11.8 sec (9.6-11.0)
[2022-06-21 03:50] LABS: CHLORIDE 106 mEq/L (98-107)
[2022-06-21] MEDS: LACOSAMIDE 100 MG TABLET PO SCH ×2 (08:54→20:55)
[2022-06-21] MEDS: ASCORBIC ACID 500 MG TABLET NG SCH ×2 (08:55→17:14)
[2022-06-21] MEDS: AMLODIPINE 5MG TABLET PO SCH ×2 (08:55→20:55)
[2022-06-21] MEDS: CARBAMAZEPINE 200MG TABLET PO SCH ×2 (08:55→20:55)
[2022-06-21] MEDS: FOLIC ACID 1MG TABLET PO SCH (08:55)
[2022-06-21] MEDS: ARIPIPRAZOLE 5MG TABLET PO SCH ×2 (08:55→17:14)
[2022-06-21] MEDS: LACTULOSE 20G/30ML UDC NG SCH (08:56)
[2022-06-21] MEDS: METHYLPREDNISOLONE SOD SUCC 40 MG/ML VIAL IV SCH ×2 (08:56→20:55)
[2022-06-21] MEDS: PHENYTOIN 100 MG/4 ML UDC GT SCH (08:56)
[2022-06-21] MEDS: FERROUS SULFATE 300MG/5ML UDC PO SCH ×2 (08:56→17:14)
[2022-06-21] MEDS: DOCUSATE SODIUM SUGAR FREE 100MG/10ML UDC NG SCH ×2 (08:56→16:19)
[2022-06-21] MEDS: PANTOPRAZOLE SODIUM 40 MG/VIAL IV SCH ×2 (08:56→20:54)
[2022-06-21] MEDS: LEVOTHYROXINE SODIUM 100 MCG/ VIAL IV SCH (08:57)
[2022-06-21] MEDS: MORPHINE SULFATE 2 MG/ML CPJ (NOT FOR IM USE) IV PRN (08:57)
[2022-06-21 09:53] LABS: BG BASE EXCESS 5.9 mmol/L (-2.0-2.0); BG CARBOXYHEMOGLOBIN 0.3 % (0.5-1.5); BG DEOXYHEMOGLOBIN 5.7 % (0.0-5.0); BG HCO3 ACT 31.8 mmol/L (22.0-26.0); BG METHEMOGLOBIN 0.2 % (0.0-1.5); BG OXYGEN SATURATION 94.3 % (92.0-98.5); BG OXYHEMOGLOBIN 93.8 % (94.0-97.0); BG PCO2 52.8 mmHg (35.0-45.0); BG PH 7.397 (7.350-7.450); BG PO2 75.1 mmHg (75.0-100.0); BG SAMPLE SITE LEFT RADIAL; BG TOTAL HEMOGLOBIN 10.5 g/dL (12.0-18.0); BG VENT MODE VENT - AC
[2022-06-21] MEDS ORDERED: CEFAZOLIN 1000MG PREMIX 50 ML IV NR (10:45)
[2022-06-21] MEDS ORDERED: FUROSEMIDE 20MG/2ML VIAL IVP NR (11:15)
[2022-06-21] MEDS ORDERED: MIDAZOLAM HCL 5 MG/5 ML VIAL ONE (12:07)
[2022-06-21] MEDS ORDERED: ROCURONIUM BROMIDE 10MG/ML VIAL 5ML IV ONE (12:07)
[2022-06-21] MEDS: PHENYTOIN 100 MG/4 ML UDC NG SCH (20:54)
[2022-06-22] VITALS (92 sets, daily range): BP systolic 98–138; BP diastolic 36–82
[2022-06-22] MEDS: PROPOFOL 10MG/ML 100ML 100 ML IV PRN ×5 (01:08→13:43)
[2022-06-22] MEDS: METOCLOPRAMIDE HCL 10MG/2ML VIAL IV SCH ×4 (01:12→17:30)
[2022-06-22 05:15] LABS: BASOPHILS % 0.6 % (0.0-2.0); EOSINOPHILS % 1.4 % (0.0-5.0); HEMATOCRIT. 28.9 % (36.0-48.0); HEMOGLOBIN. 9.5 g/dL (12.0-16.0); LYMPHOCYTES % 17.4 % (20.0-50.0); MEAN CORPUSCULAR HEMOGLOBIN 32.3 pg (28.0-32.0); MEAN PLATELET VOLUME 9.9 fl (7.4-10.4); MONOCYTES % 6.7 % (2.0-8.0); NEUTROPHILS % 73.9 % (40.0-76.0); PLATELET 274 x1000/uL (130-400); RED BLOOD CELL COUNT 2.95 mill/uL (4.2-5.4); RED CELL DISTRIBUTION WIDTH 14.4 % (11.6-14.6)
[2022-06-22 05:34] LABS: CHLORIDE 104 mEq/L (98-107)
[2022-06-22] MEDS: PREDNISOLONE ACETATE 1% OPHTH DROPS 5ML BOTHEYE SCH ×4 (06:43→17:30)
[2022-06-22 08:22] LABS: BG BASE EXCESS 5.6 mmol/L (-2.0-2.0); BG CARBOXYHEMOGLOBIN 0.1 % (0.5-1.5); BG FRACTION INSPIRED OXYGEN 60; BG HCO3 ACT 30.3 mmol/L (22.0-26.0); BG METHEMOGLOBIN 0.3 % (0.0-1.5); BG OXYHEMOGLOBIN 97.6 % (94.0-97.0); BG PCO2 44.8 mmHg (35.0-45.0); BG PH 7.448 (7.350-7.450); BG SAMPLE SITE RIGHT RADIAL; BG TOTAL HEMOGLOBIN 10.1 g/dL (12.0-18.0); BG VENT MODE VENT - AC
[2022-06-22] MEDS: ACETAMINOPHEN 325MG TABLET PO PRN (08:47)
[2022-06-22] MEDS: CARBAMAZEPINE 200MG TABLET PO SCH ×2 (08:47→21:40)
[2022-06-22] MEDS: ARIPIPRAZOLE 5MG TABLET PO SCH ×2 (08:47→17:30)
[2022-06-22] MEDS: DOCUSATE SODIUM SUGAR FREE 100MG/10ML UDC NG SCH ×2 (08:48→17:30)
[2022-06-22] MEDS: PANTOPRAZOLE SODIUM 40 MG/VIAL IV SCH ×2 (08:48→21:40)
[2022-06-22] MEDS: FERROUS SULFATE 300MG/5ML UDC PO SCH ×2 (08:48→17:30)
[2022-06-22] MEDS: LACOSAMIDE 100 MG TABLET PO SCH ×2 (08:48→21:40)
[2022-06-22] MEDS: METHYLPREDNISOLONE SOD SUCC 40 MG/ML VIAL IV SCH ×2 (08:48→21:40)
[2022-06-22] MEDS: FOLIC ACID 1MG TABLET PO SCH (08:49)
[2022-06-22] MEDS: LEVOTHYROXINE SODIUM 100 MCG/ VIAL IV SCH (08:49)
[2022-06-22] MEDS: PHENYTOIN 100 MG/4 ML UDC GT SCH (08:49)
[2022-06-22] MEDS: MORPHINE SULFATE 2 MG/ML CPJ (NOT FOR IM USE) IV PRN ×3 (08:50→21:54)
[2022-06-22] MEDS: AMLODIPINE 5MG TABLET PO SCH ×2 (08:51→21:00)
[2022-06-22] MEDS: ASCORBIC ACID 500 MG TABLET NG SCH ×2 (08:52→17:30)
[2022-06-22] MEDS ORDERED: FUROSEMIDE 20MG/2ML VIAL IVP NR (09:30)
[2022-06-22] MEDS: LORAZEPAM 2MG/ML CPJ IV PRN ×2 (14:48→21:54)
[2022-06-22] MEDS: NEOMY SULF/BACITRAC ZN/POLY OINT 28GM TOP SCH (21:40)
[2022-06-22] MEDS: PHENYTOIN 100 MG/4 ML UDC NG SCH (21:53)
[2022-06-23] VITALS (84 sets, daily range): BP systolic 94–139; BP diastolic 33–83
[2022-06-23] MEDS: PREDNISOLONE ACETATE 1% OPHTH DROPS 5ML BOTHEYE SCH ×4 (00:56→18:11)
[2022-06-23] MEDS: METOCLOPRAMIDE HCL 10MG/2ML VIAL IV SCH ×4 (00:56→18:11)
[2022-06-23 05:42] LABS: BASOPHILS % 0.7 % (0.0-2.0); EOSINOPHILS % 2.2 % (0.0-5.0); HEMATOCRIT. 29.5 % (36.0-48.0); HEMOGLOBIN. 9.7 g/dL (12.0-16.0); LYMPHOCYTES % 22.9 % (20.0-50.0); MEAN CORPUSCULAR HEMOGLOBIN 32.4 pg (28.0-32.0); MEAN CORPUSCULAR VOLUME 98.4 fL (81.0-99.0); MEAN PLATELET VOLUME 9.8 fl (7.4-10.4); MONOCYTES % 7.1 % (2.0-8.0); NEUTROPHILS % 67.1 % (40.0-76.0); PLATELET 253 x1000/uL (130-400); RED BLOOD CELL COUNT 2.99 mill/uL (4.2-5.4); RED CELL DISTRIBUTION WIDTH 14.4 % (11.6-14.6)
[2022-06-23 05:49] LABS: CHLORIDE 100 mEq/L (98-107)
[2022-06-23 08:24] LABS: BG BASE EXCESS 2.6 mmol/L (-2.0-2.0); BG CARBOXYHEMOGLOBIN 0.3 % (0.5-1.5); BG DEOXYHEMOGLOBIN 2.4 % (0.0-5.0); BG HCO3 ACT 28.7 mmol/L (22.0-26.0); BG METHEMOGLOBIN 0.3 % (0.0-1.5); BG OXYGEN SATURATION 97.6 % (92.0-98.5); BG PO2 112.9 mmHg (75.0-100.0); BG SAMPLE SITE RIGHT RADIAL; BG TOTAL HEMOGLOBIN 9.8 g/dL (12.0-18.0); BG VENT MODE VENT - AC
[2022-06-23] MEDS: AMLODIPINE 5MG TABLET PO SCH ×2 (09:00→21:00)
[2022-06-23] MEDS: LEVOTHYROXINE SODIUM 100 MCG/ VIAL IV SCH (09:14)
[2022-06-23] MEDS: FERROUS SULFATE 300MG/5ML UDC PO SCH ×2 (09:14→18:10)
[2022-06-23] MEDS: METHYLPREDNISOLONE SOD SUCC 40 MG/ML VIAL IV SCH ×2 (09:15→22:13)
[2022-06-23] MEDS: KCL 20MEQ/100ML PREMIX 100 ML IV SCH ×2 (09:15→11:56)
[2022-06-23] MEDS: PANTOPRAZOLE SODIUM 40 MG/VIAL IV SCH ×2 (09:15→22:10)
[2022-06-23] MEDS: DOCUSATE SODIUM SUGAR FREE 100MG/10ML UDC NG SCH ×2 (09:15→18:11)
[2022-06-23] MEDS: PHENYTOIN 100 MG/4 ML UDC GT SCH (09:15)
[2022-06-23] MEDS: MORPHINE SULFATE 2 MG/ML CPJ (NOT FOR IM USE) IV PRN ×3 (09:16→18:13)
[2022-06-23] MEDS: ARIPIPRAZOLE 5MG TABLET PO SCH ×2 (09:17→18:11)
[2022-06-23] MEDS: FOLIC ACID 1MG TABLET PO SCH (09:17)
[2022-06-23] MEDS: CARBAMAZEPINE 200MG TABLET PO SCH ×2 (09:17→22:09)
[2022-06-23] MEDS: LACOSAMIDE 100 MG TABLET PO SCH ×2 (09:18→22:10)
[2022-06-23] MEDS: ASCORBIC ACID 500 MG TABLET NG SCH ×2 (09:18→18:11)
[2022-06-23] MEDS: NEOMY SULF/BACITRAC ZN/POLY OINT 28GM TOP SCH ×2 (09:18→21:00)
[2022-06-23] MEDS: LORAZEPAM 2MG/ML CPJ IV PRN ×3 (11:31→22:13)
[2022-06-23 16:32] LABS: HCG SCREEN NEGATIVE
[2022-06-23] MEDS: PHENYTOIN 100 MG/4 ML UDC NG SCH (22:09)
[2022-06-24] VITALS (24 sets, daily range): BP systolic 71–120; BP diastolic 39–68
[2022-06-24] MEDS: METOCLOPRAMIDE HCL 10MG/2ML VIAL IV SCH ×4 (00:46→17:00)
[2022-06-24] MEDS: MORPHINE SULFATE 2 MG/ML CPJ (NOT FOR IM USE) IV PRN ×3 (00:47→16:42)
[2022-06-24] MEDS: PREDNISOLONE ACETATE 1% OPHTH DROPS 5ML BOTHEYE SCH ×4 (00:47→17:01)
[2022-06-24 05:39] LABS: BASOPHILS % 0.7 % (0.0-2.0); EOSINOPHILS % 3.1 % (0.0-5.0); HEMATOCRIT. 26.5 % (36.0-48.0); HEMOGLOBIN. 8.8 g/dL (12.0-16.0); LYMPHOCYTES % 27.1 % (20.0-50.0); MEAN CORPUSCULAR HEMOGLOBIN 32.7 pg (28.0-32.0); MEAN CORPUSCULAR VOLUME 98.5 fL (81.0-99.0); MEAN PLATELET VOLUME 9.5 fl (7.4-10.4); MONOCYTES % 7.3 % (2.0-8.0); NEUTROPHILS % 61.8 % (40.0-76.0); PLATELET 230 x1000/uL (130-400); RED BLOOD CELL COUNT 2.69 mill/uL (4.2-5.4); RED CELL DISTRIBUTION WIDTH 14.3 % (11.6-14.6)
[2022-06-24 05:41] LABS: CHLORIDE 102 mEq/L (98-107)
[2022-06-24] MEDS: LORAZEPAM 2MG/ML CPJ IV PRN ×3 (05:51→20:56)
[2022-06-24 08:28] LABS: BG BASE EXCESS 7.6 mmol/L (-2.0-2.0); BG CARBOXYHEMOGLOBIN 0.7 % (0.5-1.5); BG DEOXYHEMOGLOBIN 6.6 % (0.0-5.0); BG FRACTION INSPIRED OXYGEN 40; BG HCO3 ACT 32.3 mmol/L (22.0-26.0); BG METHEMOGLOBIN 0.2 % (0.0-1.5); BG OXYGEN SATURATION 93.3 % (92.0-98.5); BG OXYHEMOGLOBIN 92.5 % (94.0-97.0); BG PCO2 46.9 mmHg (35.0-45.0); BG PH 7.456 (7.350-7.450); BG PO2 67.8 mmHg (75.0-100.0); BG SAMPLE SITE RIGHT RADIAL; BG TOTAL HEMOGLOBIN 9.2 g/dL (12.0-18.0); BG VENT MODE VENT - AC
[2022-06-24] MEDS: METHYLPREDNISOLONE SOD SUCC 40 MG/ML VIAL IV SCH ×2 (08:38→20:56)
[2022-06-24] MEDS: PANTOPRAZOLE SODIUM 40 MG/VIAL IV SCH ×2 (08:39→20:56)
[2022-06-24] MEDS: AMLODIPINE 5MG TABLET PO SCH ×2 (08:40→20:57)
[2022-06-24] MEDS: FERROUS SULFATE 300MG/5ML UDC PO SCH ×2 (08:40→16:41)
[2022-06-24] MEDS: FOLIC ACID 1MG TABLET PO SCH (08:40)
[2022-06-24] MEDS: DOCUSATE SODIUM SUGAR FREE 100MG/10ML UDC NG SCH ×2 (08:40→16:42)
[2022-06-24] MEDS: PHENYTOIN 100 MG/4 ML UDC GT SCH (08:40)
[2022-06-24] MEDS: ARIPIPRAZOLE 5MG TABLET PO SCH ×2 (08:40→16:42)
[2022-06-24] MEDS: CARBAMAZEPINE 200MG TABLET PO SCH ×2 (08:40→20:56)
[2022-06-24] MEDS: ASCORBIC ACID 500 MG TABLET NG SCH ×2 (08:40→16:42)
[2022-06-24] MEDS: LACOSAMIDE 100 MG TABLET PO SCH ×2 (08:40→20:56)
[2022-06-24] MEDS: LEVOTHYROXINE SODIUM 100 MCG/ VIAL IV SCH (08:41)
[2022-06-24] MEDS: NEOMY SULF/BACITRAC ZN/POLY OINT 28GM TOP SCH ×2 (08:42→20:57)
[2022-06-24] MEDS ORDERED: FUROSEMIDE 20MG/2ML VIAL IVP SCH (09:00)
[2022-06-24] MEDS: ACETAMINOPHEN 650MG/20.3ML UDC GT PRN (11:47)
[2022-06-24] MEDS: PHENYTOIN 100 MG/4 ML UDC NG SCH (20:56)
[2022-06-25] VITALS (12 sets, daily range): BP systolic 91–126; BP diastolic 39–100
[2022-06-25] MEDS: METOCLOPRAMIDE HCL 10MG/2ML VIAL IV SCH ×5 (00:01→23:56)
[2022-06-25] MEDS: MORPHINE SULFATE 2 MG/ML CPJ (NOT FOR IM USE) IV PRN (00:02)
[2022-06-25] MEDS: AMLODIPINE 5MG TABLET PO SCH ×2 (09:00→20:41)
[2022-06-25] MEDS: DOCUSATE SODIUM SUGAR FREE 100MG/10ML UDC NG SCH ×2 (09:24→16:23)
[2022-06-25] MEDS: METHYLPREDNISOLONE SOD SUCC 40 MG/ML VIAL IV SCH ×2 (09:24→20:31)
[2022-06-25] MEDS: PHENYTOIN 100 MG/4 ML UDC GT SCH (09:25)
[2022-06-25] MEDS: PANTOPRAZOLE SODIUM 40 MG/VIAL IV SCH ×2 (09:25→20:31)
[2022-06-25] MEDS: FERROUS SULFATE 300MG/5ML UDC PO SCH ×2 (09:25→17:50)
[2022-06-25] MEDS: ARIPIPRAZOLE 5MG TABLET PO SCH ×2 (09:26→17:50)
[2022-06-25] MEDS: CARBAMAZEPINE 200MG TABLET PO SCH ×2 (09:29→20:32)
[2022-06-25] MEDS: FOLIC ACID 1MG TABLET PO SCH (09:30)
[2022-06-25] MEDS: ASCORBIC ACID 500 MG TABLET NG SCH ×2 (09:31→17:50)
[2022-06-25] MEDS: FUROSEMIDE 20MG/2ML VIAL IVP SCH (09:55)
[2022-06-25] MEDS: NEOMY SULF/BACITRAC ZN/POLY OINT 28GM TOP SCH (09:56)
[2022-06-25 12:14] LABS: HEMATOCRIT 29.5 % (36.0-48.0); HEMOGLOBIN 9.9 g/dL (12.0-16.0); MEAN CORPUSCULAR HEMOGLOBIN 33.1 pg (28.0-32.0); MEAN CORPUSCULAR VOLUME 98.8 fL (81.0-99.0); PLATELET 288 x1000/uL (130-400); RED BLOOD CELL COUNT 2.98 mill/uL (4.2-5.4); RED CELL DISTRIBUTION WIDTH 14.1 % (11.6-14.6)
[2022-06-25 13:02] LABS: CHLORIDE 99 mEq/L (98-107)
[2022-06-25] MEDS: PREDNISOLONE ACETATE 1% OPHTH DROPS 5ML BOTHEYE SCH ×5 (13:13→23:56)
[2022-06-25] MEDS: LEVOTHYROXINE SODIUM 100 MCG/ VIAL IV SCH (13:13)
[2022-06-25] MEDS: LACOSAMIDE 100 MG TABLET PO SCH ×2 (13:13→20:32)
[2022-06-25] MEDS ORDERED: POTASSIUM CHLORIDE 20MEQ/PACKET PO NR (13:45)
[2022-06-25] MEDS ORDERED: IPRATROPIUM/ALBUTEROL 0.5-3(2.5)MG/3ML NEB HHN PRN (16:15)
[2022-06-25] MEDS: PHENYTOIN 100 MG/4 ML UDC NG SCH (20:31)
[2022-06-25] MEDS: ACETAMINOPHEN 650MG/20.3ML UDC GT PRN (23:56)
[2022-06-26] VITALS (12 sets, daily range): BP systolic 113–146; BP diastolic 62–79
[2022-06-26] MEDS: PREDNISOLONE ACETATE 1% OPHTH DROPS 5ML BOTHEYE SCH ×4 (05:40→23:48)
[2022-06-26] MEDS: METOCLOPRAMIDE HCL 10MG/2ML VIAL IV SCH ×4 (05:40→23:50)
[2022-06-26] MEDS: NEOMY SULF/BACITRAC ZN/POLY OINT 28GM TOP SCH ×3 (05:42→21:50)
[2022-06-26 06:01] LABS: BASOPHILS % 0.6 % (0.0-2.0); EOSINOPHILS % 2.9 % (0.0-5.0); HEMATOCRIT. 28.2 % (36.0-48.0); HEMOGLOBIN. 9.3 g/dL (12.0-16.0); LYMPHOCYTES % 31.2 % (20.0-50.0); MEAN CORPUSCULAR HEMOGLOBIN 32.4 pg (28.0-32.0); MEAN CORPUSCULAR VOLUME 97.9 fL (81.0-99.0); MEAN PLATELET VOLUME 9.6 fl (7.4-10.4); MONOCYTES % 8.4 % (2.0-8.0); NEUTROPHILS % 56.9 % (40.0-76.0); PLATELET 262 x1000/uL (130-400); RED BLOOD CELL COUNT 2.88 mill/uL (4.2-5.4); RED CELL DISTRIBUTION WIDTH 14.2 % (11.6-14.6)
[2022-06-26 06:09] LABS: CHLORIDE 100 mEq/L (98-107)
[2022-06-26] MEDS ORDERED: POTASSIUM CHLORIDE 20MEQ TABLET SR PO NR (07:45)
[2022-06-26] MEDS: PHENYTOIN 100 MG/4 ML UDC GT SCH (08:36)
[2022-06-26] MEDS: METHYLPREDNISOLONE SOD SUCC 40 MG/ML VIAL IV SCH (08:36)
[2022-06-26] MEDS: FERROUS SULFATE 300MG/5ML UDC PO SCH ×2 (08:36→18:30)
[2022-06-26] MEDS: FOLIC ACID 1MG TABLET PO SCH (08:37)
[2022-06-26] MEDS: ARIPIPRAZOLE 5MG TABLET PO SCH ×2 (08:37→18:28)
[2022-06-26] MEDS: PANTOPRAZOLE SODIUM 40 MG/VIAL IV SCH (08:37)
[2022-06-26] MEDS: LACOSAMIDE 100 MG TABLET PO SCH ×2 (08:38→21:49)
[2022-06-26] MEDS: CARBAMAZEPINE 200MG TABLET PO SCH ×2 (08:39→21:49)
[2022-06-26] MEDS: AMLODIPINE 5MG TABLET PO SCH ×2 (08:39→21:49)
[2022-06-26] MEDS: ASCORBIC ACID 500 MG TABLET NG SCH ×2 (08:39→18:28)
[2022-06-26] MEDS: FUROSEMIDE 20MG/2ML VIAL IVP SCH (08:40)
[2022-06-26] MEDS: DOCUSATE SODIUM SUGAR FREE 100MG/10ML UDC NG SCH ×2 (08:40→18:30)
[2022-06-26] MEDS: ALBUTEROL (0.083%) 2.5MG/3ML NEB HHN PRN ×2 (09:24→13:50)
[2022-06-26] MEDS: IPRATROPIUM BROMIDE (0.02%) 0.5MG/2.5ML NEB HHN PRN ×2 (09:24→13:50)
[2022-06-26] MEDS: LEVOTHYROXINE SODIUM 100 MCG/ VIAL IV SCH (09:58)
[2022-06-26] MEDS ORDERED: METHYLPREDNISOLONE SOD SUCC 40 MG/ML VIAL IV SCH (10:00)
[2022-06-26] MEDS: ACETAMINOPHEN 325MG TABLET PO PRN (12:08)
[2022-06-26] MEDS: PHENYTOIN 100 MG/4 ML UDC NG SCH (21:49)
[2022-06-26] MEDS: HYDROMORPHONE HCL/PF 2MG/ML CPJ IV PRN (23:49)
[2022-06-27] VITALS (12 sets, daily range): BP systolic 119–140; BP diastolic 59–92
[2022-06-27] MEDS: HYDROMORPHONE HCL/PF 2MG/ML CPJ IV PRN ×7 (04:20→22:58)
[2022-06-27 06:03] LABS: BASOPHILS % 1.1 % (0.0-2.0); EOSINOPHILS % 3.1 % (0.0-5.0); HEMATOCRIT. 30.5 % (36.0-48.0); HEMOGLOBIN. 9.9 g/dL (12.0-16.0); LYMPHOCYTES % 28.8 % (20.0-50.0); MEAN CORPUSCULAR HEMOGLOBIN 31.9 pg (28.0-32.0); MEAN CORPUSCULAR VOLUME 97.9 fL (81.0-99.0); MEAN PLATELET VOLUME 9.9 fl (7.4-10.4); PLATELET 283 x1000/uL (130-400); RED BLOOD CELL COUNT 3.12 mill/uL (4.2-5.4); RED CELL DISTRIBUTION WIDTH 14.5 % (11.6-14.6)
[2022-06-27] MEDS: PREDNISOLONE ACETATE 1% OPHTH DROPS 5ML BOTHEYE SCH ×3 (06:14→17:55)
[2022-06-27] MEDS: METOCLOPRAMIDE HCL 10MG/2ML VIAL IV SCH ×3 (06:15→17:55)
[2022-06-27 06:48] LABS: HEPATITIS B SURFACE ANTIGEN NEGATIVE
[2022-06-27 07:51] LABS: CHLORIDE 98 mEq/L (98-107)
[2022-06-27] MEDS: PANTOPRAZOLE 40MG DR TABLET PO SCH (08:40)
[2022-06-27] MEDS: FOLIC ACID 1MG TABLET PO SCH (08:40)
[2022-06-27] MEDS: PHENYTOIN 100 MG/4 ML UDC GT SCH (08:40)
[2022-06-27] MEDS: FERROUS SULFATE 300MG/5ML UDC PO SCH ×2 (08:41→17:55)
[2022-06-27] MEDS: DOCUSATE SODIUM SUGAR FREE 100MG/10ML UDC NG SCH ×2 (08:41→17:56)
[2022-06-27] MEDS: FUROSEMIDE 20MG/2ML VIAL IVP SCH (08:41)
[2022-06-27] MEDS: AMLODIPINE 5MG TABLET PO SCH ×2 (08:41→20:36)
[2022-06-27] MEDS: LACOSAMIDE 100 MG TABLET PO SCH ×2 (08:42→20:36)
[2022-06-27] MEDS: ARIPIPRAZOLE 5MG TABLET PO SCH ×2 (08:42→17:55)
[2022-06-27] MEDS: CARBAMAZEPINE 200MG TABLET PO SCH ×2 (08:42→20:36)
[2022-06-27] MEDS: LEVOTHYROXINE SODIUM 100 MCG/ VIAL IV SCH (08:42)
[2022-06-27] MEDS: ASCORBIC ACID 500 MG TABLET NG SCH ×2 (08:42→17:55)
[2022-06-27] MEDS: NEOMY SULF/BACITRAC ZN/POLY OINT 28GM TOP SCH ×2 (08:43→20:37)
[2022-06-27] MEDS ORDERED: POTASSIUM CHLORIDE 20MEQ/PACKET PO NR (10:15)
[2022-06-27] MEDS ORDERED: DIATR MEGLU/DIATRIZOATE SOLN 30ML PO NR (12:00)
[2022-06-27] MEDS ORDERED: PROPOFOL 200MG/20ML VIAL IV NR (14:00)
[2022-06-27] MEDS ORDERED: PROPOFOL 10MG/ML 100ML 100 ML IV PRN (14:00)
[2022-06-27] MEDS ORDERED: NALOXONE HCL 0.4MG/ML VIAL IV PRN (15:30)
[2022-06-27] MEDS: CEFEPIME 2,000 MG in DEXT 5% WATER 100 ML IV SCH (17:56)
[2022-06-27] MEDS: ENOXAPARIN 40MG/0.4ML SYR SUBCUT SCH (18:14)
[2022-06-27] MEDS: PHENYTOIN 100 MG/4 ML UDC NG SCH (20:36)
[2022-06-28] VITALS: BP 132/73
[2022-06-28] MEDS: METOCLOPRAMIDE HCL 10MG/2ML VIAL IV SCH ×3 (00:29→11:54)
[2022-06-28 02:00] VITALS: BP 125/67
[2022-06-28] MEDS: HYDROMORPHONE HCL/PF 2MG/ML CPJ IV PRN ×6 (03:13→15:36)
[2022-06-28 04:00] VITALS: BP 133/85
[2022-06-28] MEDS: CEFEPIME 2,000 MG in DEXT 5% WATER 100 ML IV SCH (05:32)
[2022-06-28] MEDS: ENOXAPARIN 40MG/0.4ML SYR SUBCUT SCH (05:33)
[2022-06-28] MEDS: PREDNISOLONE ACETATE 1% OPHTH DROPS 5ML BOTHEYE SCH ×3 (05:42→11:58)
[2022-06-28 05:49] LABS: BASOPHILS % 0.7 % (0.0-2.0); EOSINOPHILS % 4.3 % (0.0-5.0); HEMATOCRIT. 28.9 % (36.0-48.0); HEMOGLOBIN. 9.6 g/dL (12.0-16.0); LYMPHOCYTES % 33.6 % (20.0-50.0); MEAN CORPUSCULAR HEMOGLOBIN 32.7 pg (28.0-32.0); MEAN CORPUSCULAR VOLUME 98.4 fL (81.0-99.0); MONOCYTES % 8.1 % (2.0-8.0); NEUTROPHILS % 53.3 % (40.0-76.0); PLATELET 272 x1000/uL (130-400); RED BLOOD CELL COUNT 2.94 mill/uL (4.2-5.4); RED CELL DISTRIBUTION WIDTH 14.4 % (11.6-14.6)
[2022-06-28 06:00] VITALS: BP 124/64
[2022-06-28 08:24] LABS: CHLORIDE 98 mEq/L (98-107)
[2022-06-28 08:46] LABS: T4 FREE 1.54 ng/dL (0.76-1.46)
[2022-06-28] MEDS: LACOSAMIDE 100 MG TABLET PO SCH (09:17)
[2022-06-28] MEDS: PANTOPRAZOLE 40MG DR TABLET PO SCH (09:17)
[2022-06-28] MEDS: AMLODIPINE 5MG TABLET PO SCH (09:18)
[2022-06-28] MEDS: ARIPIPRAZOLE 5MG TABLET PO SCH (09:18)
[2022-06-28] MEDS: ASCORBIC ACID 500 MG TABLET NG SCH (09:19)
[2022-06-28] MEDS: FOLIC ACID 1MG TABLET PO SCH (09:19)
[2022-06-28] MEDS: DOCUSATE SODIUM SUGAR FREE 100MG/10ML UDC NG SCH (09:20)
[2022-06-28] MEDS: PHENYTOIN 100 MG/4 ML UDC GT SCH (09:23)
[2022-06-28] MEDS: FERROUS SULFATE 300MG/5ML UDC PO SCH (09:27)
[2022-06-28] MEDS: NEOMY SULF/BACITRAC ZN/POLY OINT 28GM TOP SCH (09:28)
[2022-06-28] MEDS: LEVOTHYROXINE SODIUM 100 MCG/ VIAL IV SCH (09:28)
[2022-06-28] MEDS ORDERED: AMLO5TAB88 PO (10:51)
[2022-06-28] MEDS ORDERED: LEVO100V4 IV (10:51)
[2022-06-28] MEDS ORDERED: PANT40TA51 PO (10:51)
[2022-06-28] MEDS ORDERED: FE300LUD PO (10:51)
[2022-06-28] MEDS ORDERED: FOLI-43 PO (10:51)
[2022-06-28] MEDS ORDERED: ASCO500T20 NG (10:51)
[2022-06-28] MEDS ORDERED: ABIL5 PO (10:51)
[2022-06-28 14:38] VITALS: BP 111/58
[2022-06-28 15:36] VITALS: BP 99/61
[2022-06-29] MEDS ORDERED: LEVOTHYROXINE SODIUM 100 MCG/ VIAL IV SCH (09:00)
== END 2022-06-28 17:25 | DRG 5 ==
LOC: ER 21:38 → MICUSO 23:51 → EDBEDREQ 23:58 → EDBEDREQTM 23:58 → CVICU 05-30 10:20 → 5EST 06-25 03:20
PROVIDERS: ADMIT Internal Medicine; ATTEND Internal Medicine
PROC: 0BH17EZ Insertion of Endotracheal Airway into Trachea, Via Natural or Artificial Opening (ICD-10-PCS; principal; 2022-05-29)
PROC: 5A1955Z Respiratory Ventilation, Greater than 96 Consecutive Hours (ICD-10-PCS; 2022-05-29)
PROC: 02HV33Z Insertion of Infusion Device into Superior Vena Cava, Percutaneous Approach (ICD-10-PCS; 2022-05-31)
PROC: B548ZZA Ultrasonography of Superior Vena Cava, Guidance (ICD-10-PCS; 2022-05-31)
PROC: 4A10X4Z Monitoring of Central Nervous Electrical Activity, External Approach (ICD-10-PCS; 2022-06-02)
PROC: 0B110F4 Bypass Trachea to Cutaneous with Tracheostomy Device, Open Approach (ICD-10-PCS; 2022-06-20)
PROC: 0DJ08ZZ Inspection of Upper Intestinal Tract, Via Natural or Artificial Opening Endoscopic (ICD-10-PCS; 2022-06-21)
PROC: 0DB68ZX Excision of Stomach, Via Natural or Artificial Opening Endoscopic, Diagnostic (ICD-10-PCS; 2022-06-21)
PROC: 0DH64UZ Insertion of Feeding Device into Stomach, Percutaneous Endoscopic Approach (ICD-10-PCS; 2022-06-21)
PROC: 3E0G76Z Introduction of Nutritional Substance into Upper GI, Via Natural or Artificial Opening (ICD-10-PCS; 2022-06-21)
DX: A41.1 Sepsis due to other specified staphylococcus (principal); E03.5 Myxedema coma; R65.21 Severe sepsis with septic shock; J69.0 Pneumonitis due to inhalation of food and vomit; G92.8 Other toxic encephalopathy; E72.20 Disorder of urea cycle metabolism, unspecified; K29.71 Gastritis, unspecified, with bleeding; E43 Unspecified severe protein-calorie malnutrition; G40.901 Epilepsy, unspecified, not intractable, with status epilepticus; J80 Acute respiratory distress syndrome; E87.20 Acidosis, unspecified; E87.5 Hyperkalemia; M62.82 Rhabdomyolysis; E03.9 Hypothyroidism, unspecified; G47.33 Obstructive sleep apnea (adult) (pediatric); S27.819A Unspecified injury of esophagus (thoracic part), initial encounter; J84.9 Interstitial pulmonary disease, unspecified; Z20.822 Contact with and (suspected) exposure to COVID-19; D75.89 Other specified diseases of blood and blood-forming organs; E83.39 Other disorders of phosphorus metabolism; E87.6 Hypokalemia; F12.929 Cannabis use, unspecified with intoxication, unspecified; D72.821 Monocytosis (symptomatic); E83.42 Hypomagnesemia; G31.9 Degenerative disease of nervous system, unspecified; F19.10 Other psychoactive substance abuse, uncomplicated; Z68.42 Body mass index [BMI] 45.0-49.9, adult; K82.8 Other specified diseases of gallbladder; G40.409 Other generalized epilepsy and epileptic syndromes, not intractable, without status epilepticus; B95.8 Unspecified staphylococcus as the cause of diseases classified elsewhere; D64.9 Anemia, unspecified; E87.0 Hyperosmolality and hypernatremia; Z78.1 Physical restraint status; H11.423 Conjunctival edema, bilateral; K59.00 Constipation, unspecified; E78.1 Pure hyperglyceridemia; R13.11 Dysphagia, oral phase; F41.9 Anxiety disorder, unspecified; Z91.199 Patient's noncompliance with other medical treatment and regimen due to unspecified reason; Z82.49 Family history of ischemic heart disease and other diseases of the circulatory system; Z93.1 Gastrostomy status
CPT/HCPCS: 31500; 36415; 36573; 36600; 71045; 74018; 74176; 76700; 78580; 80048; 80053; 80061; 80076; 80156; 80185; 80202; 80305; 80320; 80339; 81003; 82140; 82375; 82533; 82542; 82550; 82607; 82728; 82746; 82805; 82962; 82977; 83540; 83550; 83605; 83735; 83880; 84100; 84145; 84439; 84443; 84478; 84481; 84484; 84703; 85014; 85018; 85025; 85027; 85044; 85379; 86376; 86705; 86709; 86803; 87070; 87340; 87420; 87426; 87804; 88305; 93005; 93306; 93970; 94002; 94003; 94640; 94667; 95816; 97161; 97164; 99291; A6261; C1725; C9113; J0330; J0461; J0690; J0692; J1165; J1170; J1200; J1630; J1650; J1940; J1953; J2060; J2250; J2270; J2310; J2370; J2405; J2704; J2765; J2920; J2930; J3010; J3370; J3480; J3490; J7030; J7050; J7060; J7608; G0480

== ENCOUNTER 2022-11-13 11:33 | Emergency (ER) | payer MEDICAID ==
[~2022-11-13] VITALS: Ht 165.1 cm; Wt 113.0 kg
[~2022-11-13 11:33] MED LIST changes: +ABIL5 PO; +AMLO5TAB88 PO; +ASCO500T20 NG; -CARB200T; -DIVA250T4 PO; +FE300LUD PO; +FOLI-43 PO; -LEVE1000 MT; -LEVO100T PO; +LEVO100V4 IV; +PANT40TA51 PO; +PHEN100C4 MT
[2022-11-13 11:42] VITALS: BP 98/68; O2SAT 95
[2022-11-13 11:43] VITALS: PULSE 107; TEMP 99.1
[2022-11-13] MEDS ORDERED: SYN200 MT (12:08)
[2022-11-13] MEDS ORDERED: ALBU6.7H3 INH (12:08)
[2022-11-13] MEDS ORDERED: LEVE1000 MT (12:08)
[2022-11-13] MEDS ORDERED: ACET-2708 MT (12:08)
[2022-11-13] MEDS ORDERED: MAG355OR21 MT (12:08)
== END 2022-11-13 12:52 | disposition home or self-care (01) ==
LOC: ER 11:33
DX: Z76.0 Encounter for issue of repeat prescription (principal); F12.10 Cannabis abuse, uncomplicated; Z79.899 Other long term (current) drug therapy
CPT/HCPCS: 99283

== ENCOUNTER 2022-12-24 20:03 | Emergency (ER) | payer MEDICAID, OTHER ==
[~2022-12-24] VITALS: Ht 162.6 cm; Wt 137.0 kg
[~2022-12-24 20:03] MED LIST changes: +ACET-2708 MT; +ALBU6.7H3 INH; +LEVE1000 MT; +MAG355OR21 MT; +SYN200 MT
[2022-12-24 20:14] VITALS: O2SAT 99
[2022-12-24] MEDS ORDERED: SODIUM CHLORIDE 0.9% 1,000 ML IV ONE (21:15)
[2022-12-24 21:49] LABS: BASOPHILS % 0.7 % (0.0-2.0); EOSINOPHILS % 1.1 % (0.0-5.0); HEMATOCRIT. 40.3 % (36.0-48.0); HEMOGLOBIN. 13.3 g/dL (12.0-16.0); LYMPHOCYTES % 28.9 % (20.0-50.0); MEAN CORPUSCULAR HEMOGLOBIN 30.5 pg (28.0-32.0); MEAN CORPUSCULAR VOLUME 92.5 fL (81.0-99.0); MEAN PLATELET VOLUME 9.1 fl (7.4-10.4); MONOCYTES % 7.1 % (2.0-8.0); NEUTROPHILS % 62.2 % (40.0-76.0); PLATELET 281 x1000/uL (130-400); RED BLOOD CELL COUNT 4.36 mill/uL (4.2-5.4); RED CELL DISTRIBUTION WIDTH 13.8 % (11.6-14.6); WHITE BLOOD COUNT 9.4 x1000/uL (4.5-11.0)
[2022-12-24 21:57] LABS: CHLORIDE 104 mEq/L (98-107); INDEX HEMOLYSI 1 (1-3); INDEX ICTERIC 1 (1-4); INDEX LIPEMIC 1 (1-3); POTASSIUM 3.4 mEq/L (3.5-5.1); SODIUM 136 mEq/L (136-145)
[2022-12-24 22:02] LABS: ALANINE AMINOTRANSFERASE 19 IU/L (13-61); CALCIUM 8.9 mg/dL (8.5-10.1); CARBON DIOXIDE 27 mEq/L (21-32); ETHANOL BLOOD < 10 mg/dL (-10); GLUCOSE 95 mg/dL (70-105); UREA NITROGEN BLOOD 13 mg/dL (7-21)
[2022-12-24 22:05] LABS: ASPARTATE AMINOTRANSFERASE 15 IU/L (15-37); BILIRUBIN TOTAL 0.4 mg/dL (0.1-1.0); CREATININE 0.7 mg/dL (0.6-1.3); PROTEIN TOTAL 7.5 g/dL (6.0-8.3)
[2022-12-24 22:15] LABS: HCG SCREEN NEGATIVE
[2022-12-24] MEDS ORDERED: LEVE1000 MT ×2 (22:30)
[2022-12-24] MEDS ORDERED: CARBAMAZEPINE 100MG TABLET CHEW PO ONE (22:30)
[2022-12-24] MEDS ORDERED: LEVETIRACETAM 500MG TABLET PO ONE (22:30)
[2022-12-24 23:25] VITALS: BP 125/77; PULSE 92; RESP 18; TEMP 98.2
[2022-12-25] MEDS ORDERED: PHEN100C12 PO ×2 (23:33→23:34)
[2022-12-25] MEDS ORDERED: ARIP1SOL PO (23:34)
[2022-12-25] MEDS ORDERED: LEVE500T19 PO (23:34)
[2022-12-25] MEDS ORDERED: CARB400T8 PO (23:34)
== END 2022-12-24 23:25 | disposition home or self-care (01) ==
LOC: ER 21:54
DX: R56.9 Unspecified convulsions (principal); I10 Essential (primary) hypertension; F12.90 Cannabis use, unspecified, uncomplicated; Z79.899 Other long term (current) drug therapy; Z98.890 Other specified postprocedural states
CPT/HCPCS: 80053; 80320; 82962; 84703; 85025; 36415; 99283; J7030; G0480

== ENCOUNTER 2023-01-20 17:52 | Emergency (ER) | payer OTHER ==
[~2023-01-20] VITALS: Ht 162.6 cm; Wt 100.0 kg
[~2023-01-20 17:52] MED LIST changes: -ABIL5 PO; -ACET-2708 MT; -ALBU6.7H3 INH; -AMLO5TAB88 PO; +ARIP1SOL PO; -ASCO500T20 NG; +CARB400T8 PO; -FE300LUD PO; -FOLI-43 PO; -LEVE1000 MT; +LEVE500T19 PO; -LEVO100V4 IV; -MAG355OR21 MT; -PANT40TA51 PO; +PHEN100C12 PO; -PHEN100C4 MT; -SYN200 MT
[2023-01-20 17:53] VITALS: O2SAT 99
[2023-01-20] MEDS ORDERED: PHENYTOIN SODIUM EXTENDED 100MG CAPSULE PO ONE (18:15)
[2023-01-20] MEDS ORDERED: CARBAMAZEPINE 100MG TABLET CHEW PO ONE (18:15)
[2023-01-20] MEDS ORDERED: LEVETIRACETAM 1000MG PREMIX 100 ML IV ONE (18:15)
[2023-01-20] MEDS ORDERED: SODIUM CHLORIDE 0.9% 1,000 ML IV ONE (18:30)
[2023-01-20 18:42] LABS: BASOPHILS % 0.7 % (0.0-2.0); EOSINOPHILS % 1.1 % (0.0-5.0); HEMATOCRIT. 39.1 % (36.0-48.0); HEMOGLOBIN. 13.1 g/dL (12.0-16.0); LYMPHOCYTES % 29.3 % (20.0-50.0); MEAN CORPUSCULAR HEMOGLOBIN 31.2 pg (28.0-32.0); MEAN CORPUSCULAR HGB CONC 33.6 g/dL (31.0-37.0); MEAN CORPUSCULAR VOLUME 92.8 fL (81.0-99.0); MEAN PLATELET VOLUME 8.9 fl (7.4-10.4); MONOCYTES % 6.3 % (2.0-8.0); NEUTROPHILS % 62.6 % (40.0-76.0); PLATELET 247 x1000/uL (130-400); RED BLOOD CELL COUNT 4.21 mill/uL (4.2-5.4); RED CELL DISTRIBUTION WIDTH 13.9 % (11.6-14.6); WHITE BLOOD COUNT 9.8 x1000/uL (4.5-11.0)
[2023-01-20 19:02] LABS: CHLORIDE 112 mEq/L (98-107); HCG SCREEN NEGATIVE; INDEX HEMOLYSI 1 (1-3); INDEX ICTERIC 1 (1-4); INDEX LIPEMIC 1 (1-3); POTASSIUM 3.2 mEq/L (3.5-5.1); SODIUM 140 mEq/L (136-145)
[2023-01-20 19:09] LABS: ALANINE AMINOTRANSFERASE 21 IU/L (13-61); ALBUMIN 3.4 g/dL (3.4-5.0); ASPARTATE AMINOTRANSFERASE 13 IU/L (15-37); BILIRUBIN TOTAL 0.2 mg/dL (0.1-1.0); CALCIUM 8.2 mg/dL (8.5-10.1); CARBAMAZEPINE 2.3 ug/mL (4-12); CARBON DIOXIDE 25 mEq/L (21-32); CREATININE 0.7 mg/dL (0.6-1.3); ETHANOL BLOOD < 10 mg/dL (-10); GLUCOSE 122 mg/dL (70-105); PHENYTOIN 12.9 ug/mL (10-20); PROTEIN TOTAL 6.8 g/dL (6.0-8.3); UREA NITROGEN BLOOD 11 mg/dL (7-21)
[2023-01-20 19:28] LABS: CLARITY URINE TURBID (CLEAR); COLOR URINE YELLOW (YELLOW); GLUCOSE URINE NEGATIVE (NEGATIVE); KETONES URINE NEGATIVE (NEGATIVE); LEUKOCYTE ESTERASE URINE TRACE (NEGATIVE); NITRITE URINE NEGATIVE (NEGATIVE); OCCULT BLOOD URINE NEGATIVE (NEGATIVE); PROTEIN URINE 2+ (NEGATIVE); SPECIFIC GRAVITY URINE 1.025 (1.005-1.030); UROBILINOGEN URINE 0.2 E.U./dL (0.2-1.0)
[2023-01-20] MEDS ORDERED: CALCIUM GLUCONATE 1GM PREMIX 50 ML IV NR (19:30)
[2023-01-20] MEDS ORDERED: POTASSIUM CHLORIDE 20MEQ/PACKET PO NR (19:30)
[2023-01-20 19:45] LABS: BACTERIA URINE 3+; SQUAMOUS EPITHELIAL CELL URINE 1+ /lpf (RARE/1+)
[2023-01-20 19:46] LABS: RBC URINE 0-2 /hpf (0-2); WBC URINE 0-2 /hpf (0-2)
[2023-01-20 20:00] LABS: *AMPHETAMINES SCREEN URINE NEGATIVE (NEGATIVE); *BARBITURATES SCREEN URINE NEGATIVE (NEGATIVE); *BENZODIAZEPINES SCREEN URINE NEGATIVE (NEGATIVE); *COCAINE SCREEN URINE NEGATIVE (NEGATIVE); ECSTASY MDMA SCREEN URINE NEGATIVE (NEGATIVE); METHADONE URINE SCREEN NEGATIVE (NEGATIVE); OPIATES URINE SCREEN NEGATIVE (NEGATIVE); PHENCYCLIDINE URINE SCREEN NEGATIVE (NEGATIVE)
[2023-01-20 20:10] LABS: CANNABINOID URINE SCREEN PRESUMTIVE POSITIVE (NEGATIVE)
[2023-01-21] VITALS: BP 115/62; PULSE 57; RESP 22; TEMP 98
== END 2023-01-21 | disposition short-term general hospital (02) ==
LOC: ER 17:52
DX: R56.9 Unspecified convulsions (principal); F12.10 Cannabis abuse, uncomplicated
CPT/HCPCS: 80053; 80305; 81003; 81025; 80320; 80156; 80185; 82962; 84703; 85025; 36415; 70450; 96361; 96365; 99285; J1953; J0610; J7030; Z7610; G0480

== ENCOUNTER 2023-07-25 13:44 | Emergency (ER) | payer MEDICAID, OTHER ==
[~2023-07-25] VITALS: Ht 167.6 cm; Wt 100.0 kg
[2023-07-25 13:46] VITALS: O2SAT 100
[2023-07-25] MEDS: LEVETIRACETAM 1000MG PREMIX 100 ML IV ONE (14:27)
[2023-07-25 14:45] VITALS: TEMP 98.5
[2023-07-25 14:48] LABS: BASOPHILS % 0.8 % (0.0-2.0); EOSINOPHILS % 0.9 % (0.0-5.0); HEMATOCRIT. 39.7 % (36.0-48.0); HEMOGLOBIN. 13.2 g/dL (12.0-16.0); LYMPHOCYTES % 31.5 % (20.0-50.0); MEAN CORPUSCULAR HGB CONC 33.2 g/dL (31.0-37.0); MEAN CORPUSCULAR VOLUME 96.4 fL (81.0-99.0); MEAN PLATELET VOLUME 9.6 fl (7.4-10.4); NEUTROPHILS % 60.8 % (40.0-76.0); PLATELET 245 x1000/uL (130-400); RED BLOOD CELL COUNT 4.12 mill/uL (4.2-5.4); RED CELL DISTRIBUTION WIDTH 13.4 % (11.6-14.6); WHITE BLOOD COUNT 6.9 x1000/uL (4.5-11.0)
[2023-07-25 14:57] LABS: ALANINE AMINOTRANSFERASE 18 IU/L (10-49); ALBUMIN 4.3 g/dL (3.2-4.8); ASPARTATE AMINOTRANSFERASE 21 IU/L (<34); BILIRUBIN TOTAL 0.2 mg/dL (0.1-1.0); CALCIUM 8.7 mg/dL (8.7-10.4); CARBON DIOXIDE 24 mEq/L (21-32); CHLORIDE 109 mEq/L (98-107); CREATININE 0.6 mg/dL (0.6-1.0); GLUCOSE 83 mg/dL (70-105); HCG SCREEN NEGATIVE; POTASSIUM 4.1 mEq/L (3.5-5.1); SODIUM 139 mEq/L (136-145); UREA NITROGEN BLOOD 12 mg/dL (9-23)
[2023-07-25 15:00] LABS: ETHANOL BLOOD < 10 mg/dL (<10)
[2023-07-25 19:45] VITALS: BP 106/72; PULSE 66; RESP 15
== END 2023-07-25 20:00 | disposition home or self-care (01) ==
LOC: ER 13:44
DX: G40.909 Epilepsy, unspecified, not intractable, without status epilepticus (principal); F12.10 Cannabis abuse, uncomplicated; Z93.0 Tracheostomy status; Z91.013 Allergy to seafood; Z98.890 Other specified postprocedural states
CPT/HCPCS: 80053; 80320; 84703; 85025; 36415; 96365; 96366; 99285; J1953; Z7610 ×2; G0480